=== PATIENT | male | born 1955 | race Two or more races ===

== ENCOUNTER 2019-07-30 13:45 | Inpatient (IN) | payer MEDICAID, SELFPAY ==
[2019-07-30] VITALS (8 sets, daily range): BP systolic 111–151; BP diastolic 57–84; PULSE 60–89; RESP 16–22; TEMP 36.9–37.3; O2SAT 93–95; BMI 27.4; BMI 26.3
--- NOTE | 2019-07-30 14:01 | CT_ITS ---
PROCEDURE: CT CHEST WO CON Patient Age:64Y CLINICAL INDICATION: pain epigastric pain with episode of vomiting this morning. Nonsmoker COMPARISON: CT ABDOMEN PELVIS WO CON from 07/30/2019 TECHNIQUE: No IV contrast utilized. Helical axial images obtained with axial sagittal and coronal reformats. All CT scans at the facility use one or more dose reduction, viz: automated exposure control, ma/kV adjustment per patient size (including targeted exams where dose is matched to indication, i.e. head), or iterative reconstruction technique. . FINDINGS: HEART: Heart enlarged; mainly ventricular enlargement.. No pericardial effusion. Upper abdomen. Is describing subsequent CT abdomen report MEDIASTINAL AND HILAR STRUCTURES: No mediastinal or hilar mass evident. No dominant adenopathy. Esophagus: Fluid within the esophagus noted. Could reflect GE reflux. The preliminary V RC report raised question a small hiatal hernia but I am not convinced of such. PULMONARY ARTERIES: No discrete findings; slightly generous pulmonary arteries at hilar regions on right of questionably could reflect mild pulmonary hypertension. AORTA: No significant aneurysm but there is mildly dilated ascending aorta which measures 4.5 cm.. . A ectatic dilated right innominate artery LUNGS:Dependent atelectasis at the lung bases bilaterally. There is also some scarring at the posterior sulcus of particular in the left posterior sulcus. . Trace minimal atelectasis at lingula accounts for appearance here as well The mild vascular engorgement of pulmonary veins could reflect some mild vascular congestion but no overt CHF or pulmonary edema otherwise but PLEURAL SPACES: No significant effusion. No evidence of pneumothorax. BONY STRUCTURES: No acute bony abnormalities apparent.. No osseous lesions. Anterior marginal osteophytes throughout mid and lower T-spine. Mild degenerative changes T-spine. Degenerative changes T-spine LYMPH NODES: No significant enlarged lymph nodes evident. Upper abdomen. Fatty changes the liver. Pancreas partially imaged on this study; hazy appearance here again noted reflecting pancreatitis of best seen and discussed on CT abdomen study IMPRESSION: Cardiomegaly. Mainly left ventricular enlargement . Minor atelectatic changes posterior lung bases bilaterally; with no focal consolidation or pneumonia or Incidental note minimal fluid throughout esophagus-could reflect GE reflux (V RC suggested probable small hiatal hernia however I not convinced of such on these images) Ectatic mildly dilated ascending aorta (4.2 cm diameter) and with dilated proximal aortic arch (4 cm diameter.) These features can be followed ectatic dilated Dictated by: Ra Briceno MD 07/31/2019 09:54 Electronically signed by Ra Briceno MD in [place] 07/31/2019 09:54
--- NOTE | 2019-07-30 14:01 | CT_ITS ---
Procedure: CT ABDOMEN PELVIS WO CON Patient Age:64Y CLINICAL INDICATION: pain epigastric pain with 1 episode of vomiting this morning. Patient has had surgery at left side involving bowel COMPARISON: No exams were available for comparison TECHNIQUE: No oral or IV contrast utilized Helical axial l images obtained with axial sagittal and coronal reformats. All CT scans at the facility use one or more dose reduction,, viz: Automated exposure control, ma/kV adjustment per patient size (including targeted exams where dose is matched to indication, i.e. head), or iterative reconstruction technique. FINDINGS: Lower thorax: No acute finding borderline cardiomegaly V RC raised question of a small possible hiatal hernia this unimpressive there is minimal fluid esophagus which could reflect reflux ABDOMEN: Lack of oral and IV contrast decreases sensitivity Liver: Diffuse fatty changes of liver. Gallbladder: Nondistended. Suggestion of faint debris at the gallbladder towards fundus. Of reflecting small faint stones or sludge. Common duct normal diameter with no discrete stones appreciated along the course of common duct on 9. Pancreas: Mild peripancreatic fat stranding surround the pancreas, most evident near the tail the pancreas. Findings suggest early pancreatitis., particularly with addition of minimal fluid extending from the pancreas to Gerota fascia anterior to left kidney and the minimal fluid extending laterally beginning to track along the left gutter. Findings require correlation with amylase/lipase. Spleen: unremarkable WNL Adrenals: unremarkable WNL sludge Kidneys/ureters: unremarkable no notable calculi nor obstruction kidneys normal size. Ureters unremarkable PELVIS: Reproductive: Mildly the enlarged prostate measuring 5 cm but Urinary bladder unremarkable . GI tract. -------- Fluid-filled stomach mildly distended. Slightly distended fluid-filled duodenal loop 3rd portion could reflect some mild ileus secondary to pancreatitis in this region normal, unremarkable Small bowel: Otherwise overall satisfactory. Perhaps slight increased fluid proximal small bowel with upper normal wall thickness proximal small bowel. Non-specific mid and distal small bowel unremarkable. Appendix identified and normal. No evidence of appendicitis.:Terminal ileum normal. Large bowel:. Scattered diverticula at descending colon, splenic flexure and sigmoid colon. No acute diverticulitis. A normal amount of stool at rectosigmoid and right colon.. Upper normal wall thickness near splenic flexure-most likely reflects lack distension.. Peritoneum: Again note the minimal tracking along along the fascia anterior to the left kidney extending towards the left gutter left paracolic gutter. This fluid appears to extend up to the tail the pancreas and again suspect for pancreatitis. Otherwise no free air. And no free fluid at pelvis Small fat containing right inguinal hernia noted. Contains no bowel loops . Lymph nodes: No significant enlarged lymph nodes apparent. Vasculature: Developing aneurysm dilatation infrarenal abdominal aorta of which measures up to 3.9 cm AP 3.4 cm transverse x 5.7 cm length. Warrants follow-up with ultrasound 6 months-period.. Only mild dilatation of common iliac vessels no retroperitoneal hemorrhage evident. Bones: No acute fracture or findings Degenerative changes spine. No lesions or acute findings of note IMPRESSION: 1.Findings of developing pancreatitis.-and require correlation with amylase and lipase. . There is slight hazy appearance about the pancreas with minimal fluid tracking along left perirenal fascia towards left gutter No pseudocyst formation.. Common
[2019-07-30 14:23] LABS: Anion Gap 12.5 mEq/L (5-15); Blood Urea Nitrogen 19 mg/dl (9-20); Calcium 10.2 mg/dl (8.4-10.2); Carbon Dioxide 29 mmol/L (22.0-30.0); Chloride 102 mmol/L (98-107); Creatinine Clearance Estimated 81 mL/min (50-200); Estimated Glomerular Filt Rate 114 ml/min (>60); GFR (African American) 138 ML/MIN (>60); Glucose 168 mg/dl (74-100); Potassium 3.5 mmoL/L (3.5-5.1); Sodium 140 mmol/L (136-145)
[2019-07-30 14:27] LABS: Basophils % 0.2 % (0.1-2.0); Eosinophils % 0.2 % (0.1-12.0); Hematocrit 50.9 % (42.0-52.0); Hemoglobin 17.4 g/dL (14.1-18.0); Lymphocytes # 0.4 K/mm3 (0.7-4.5); Lymphocytes % 3.7 % (10-50); Mean Corpuscular HGB Conc 34.1 g/dL (31.8-35.4); Mean Platelet Volume 8.3 fl (7.4-10.4); Monocytes # 0.8 K/mm3 (0.1-1.0); Monocytes % 6.9 % (1.7-9.3); Neutrophils # 10.8 K/mm3 (1.8-7.8); Platelet Count 165 K/mm3 (142-424); Red Blood Count 5.59 M/mm3 (4.60-6.20); Red Cell Distribution Width 13.4 % (11.5-17.5); White Blood Count 12.1 K/mm3 (4.8-10.8)
[2019-07-30 14:29] LABS: MANUAL DIFFERENTIAL MANUAL DIFFERENTIAL (MANUAL DIFF)
[2019-07-30 14:36] LABS: Troponin I < 0.01 ng/ml (0.00-0.034)
[2019-07-30 14:42] LABS: Lymphocytes % 3 % (10-50); Monocytes % 3 % (2-9); Neutrophils % 85 % (42-76); Platelet Estimate Normal; RBC Morphology Normal; Total Cells Counted 100
--- NOTE | 2019-07-30 15:29 | PC.NURSE ---
SPOKE WITH MICHAEL CONCERNING ABD CT RESULTS THAT THEY STATE ARE SUGGESTED OF ACUTE PANCREATITIS.
[2019-07-30 15:40] LABS: Amylase 621 U/L (30-110)
--- NOTE | 2019-07-30 16:01 | HMH.EDABDPAI ---
ED Disposition Clinical Impression: Abdominal pain, Acute pancreatitis, Hiatal hernia Disposition: Admitted as Observation Condition on Discharge: Good Instructions: DI for Acute Abdomen Referrals: Provider,Referral, [Primary Care Provider] - - Critical Care Critical Care Time: No Attestation: On 07/30/19, the high probability of a clinically significant, sudden or life threatening deterioration of the following system(s) required my full and direct attention, intervention and personal management. The time I documented below is in addition to time spent performing reported procedures but includes the following listed in this critical care notation. Medical Decision Making - Medical Records Medical records reviewed: Yes: I reviewed the patient's medical records. - [place] Inquiry Pt receiving controlled substance: No Vital Signs: 07/30/19 13:46 Temperature 98.4 F Temperature Source Oral Pulse Rate [Radial] 78 Respiratory Rate 18 Blood Pressure [Right Arm] 129/83 Blood Pressure Mean [Right Arm] 98 Blood Pressure Source [Right Arm] Automatic Cuff Blood Pressure Position [Right Arm] Sitting 02 Sat by Pulse Oximetry 95 Oxygen Delivery Method Room Air - Lab Data Lab results reviewed: Yes: I reviewed the patient's lab results. Lab Results 07/30/19 13:55: WBC 12.1 H, RBC 5.59, Hgb 17.4, Hct 50.9, MCV 91.0, MCH 31.0, MCHC 34.1, RDW 13.4, Plt Count 165, MPV 8.3, Neut % (Auto) 89.0 H, Lymph % (Auto) 3.7 L, [place] % (Auto) 6.9, Eos % (Auto) 0.2, Baso % (Auto) 0.2, Neut # (Auto) 10.8 H, Lymph # (Auto) 0.4 L, [place] # (Auto) 0.8, Eos # (Auto) 0.0, Baso # (Auto) 0.0, Total Counted 100, Neutrophils % (Manual) 85 H, Band Neutrophils % 4.0, Lymphocytes % (Manual) 3 L, Monocytes % (Manual) 3, Metamyelocytes % 5.0 H, Platelet Estimate Normal, RBC Morphology Normal 07/30/19 13:55: Sodium 140, Potassium 3.5, Chloride 102, Carbon Dioxide 29, Anion Gap 12.5, BUN 19, Creatinine 0.70, Estimated Creat Clear 81, Estimated GFR 114, Est GFR ( Amer) 138, Glucose 168 H, Calcium 10.2, Troponin I < 0.01 07/30/19 13:55: Amylase 621 H* Result diagrams: 07/30/19 13:55 07/30/19 13:55 Orders (Tests/Meds): ED MEDICATIONS Discontinued Medications Generic Name Dose Route Start Last Admin Trade Name Freq PRN Reason Stop Dose Admin Belladonna Alkaloids 60 ml 07/30/19 14:51 07/30/19 14:52 Gi Cocktail 60ml Udc PO 07/30/19 14:52 60 ml ONCE ONE Administration ORDERS Category Date Time Status CT abdomen pelvis wo con Stat Cat Scan 07/30/19 14:[address] chest wo con Stat Cat Scan 07/30/19 14:01 Taken Amylase Stat Lab 07/30/19 13:55 Results Lipase Stat Lab 07/30/19 13:55 Results Troponin I Q3H Lab 07/30/19 15:09 Ordered Troponin I Q3H Lab 07/30/19 20:15 Ordered - CT Data CT Scan: Abdomen, Pelvis Time Received: 16:00 Preliminary Findings: Abnormal (She hasFat stranding around the tail the pancreas and also inflamed tail significant for mild pancreatitis or new onset pancreatitis.), Normal Heart Size - ECG Data Tracing #1 I reviewed this ECG and interpreted as documented below: Normal Sinus Rhythm: Yes Medical Decision Narrative: Spoke to Dr. Goode about admitting this patient he agreed to start the patient on antibiotics IV fluids IV pain medicines and IV antiemetics. Abdominal Pain HPI - General Chief Complaint: Abdominal Pain Stated Complaint: stomach pain, vomiting Time Seen by Provider: 07/30/19 16:01 Mode of Arrival: Wheelchair Source of Information: Patient Limitations: No Limitations Description of Symptoms (Recalled from ER Triage Doc. by RN): complaint of epigastric pain with vomiting x 1. - History of Present Illness HPI narrative: 64-year-old male presents to the ED with an acute onset of epigastric and left upper quadrant pain x9 hours. Patient describes this pain as a sharp pressure-like sensation that starts in the left upper quadrant that radiates over to th
[2019-07-30 16:06] LABS: Lipase 7723 U/L (23-300)
--- NOTE | 2019-07-30 16:22 | PC.NURSE ---
CALLED CHARGE NURSE FOR BED ASSIGNMENT. PATIENT WILL BE ADMITTED TO ROOM 212. ER STAFF NOTIFIED
--- NOTE | 2019-07-30 17:04 | PC.NURSE ---
Pt arrived to floor via .
[2019-07-30 17:38] LABS: Troponin I < 0.01 ng/ml (0.00-0.034)
--- NOTE | 2019-07-30 18:20 | PC.NURSE ---
Pt arrived to the unit around 1700. A&O X4. No complaints of pain/discomfort or SOA. Abdomen noted to be flat, soft, and slightly tender. NPO except ice chips at this time. 18 G peripheral IV in place to the LT forearm and infusing NS @ 125 ML/HR. Lungs CTA. VSS. Call light within reach. Will continue to monitor.
[2019-07-30 20:33] LABS: Troponin I < 0.01 ng/ml (0.00-0.034)
[2019-07-31] VITALS (9 sets, daily range): BP systolic 104–148; BP diastolic 58–83; PULSE 60–70; RESP 17–20; TEMP 36.8–37.1; O2SAT 94–96; BMI 26.6
--- NOTE | 2019-07-31 05:12 | PC.NURSE ---
Pt has had only mild c/o abdominal pain this shift but denies need for pain medication when asked. This RN educated pt on making sure pain was under control and to ring out if pain was >5/10. Pt verbalized understanding. No c/o N/V/D. Pt is independent w/ care and states he has had a BM this shift and voided twice w/o issues. Family has remained bedside during the night. TEDS in place. Pt has remained NPO except for ice chips (1 cup). VSS.
[2019-07-31 05:43] LABS: Basophils % 0.3 % (0.1-2.0); Eosinophils % 0.3 % (0.1-12.0); Hematocrit 44.3 % (42.0-52.0); Lymphocytes # 1.6 K/mm3 (0.7-4.5); Lymphocytes % 16.5 % (10-50); Mean Corpuscular HGB Conc 33.1 g/dL (31.8-35.4); Mean Corpuscular Hemoglobin 30.3 pg (27.0-31.2); Mean Corpuscular Volume 91.3 fl (80-94); Mean Platelet Volume 8.2 fl (7.4-10.4); Monocytes # 0.9 K/mm3 (0.1-1.0); Monocytes % 9.3 % (1.7-9.3); Neutrophils # 7.3 K/mm3 (1.8-7.8); Neutrophils % 73.6 % (37.0-80.0); Platelet Count 167 K/mm3 (142-424); Red Blood Count 4.84 M/mm3 (4.60-6.20); Red Cell Distribution Width 13.5 % (11.5-17.5); White Blood Count 9.9 K/mm3 (4.8-10.8)
[2019-07-31 05:48] LABS: Hemoglobin 14.7 g/dL (14.1-18.0)
[2019-07-31 05:55] LABS: Alanine Aminotransferase 126 U/L (12-78); Albumin Level 3.7 g/dl (3.5-5.0); Albumin/Globulin Ratio 1.2 (1.1-1.8); Alkaline Phosphatase 86 U/L (38-126); Amylase 348 U/L (30-110); Anion Gap 7.5 mEq/L (5-15); Aspartate Amino Transferase 76 U/L (17-59); Bilirubin,Total 1.6 mg/dl (0.2-1.3); Blood Urea Nitrogen 18 mg/dl (9-20); Carbon Dioxide 27 mmol/L (22.0-30.0); Chloride 105 mmol/L (98-107); Creatinine Clearance Estimated 79 mL/min (50-200); Estimated Glomerular Filt Rate 114 ml/min (>60); GFR (African American) 138 ML/MIN (>60); Potassium 3.5 mmoL/L (3.5-5.1); Sodium 136 mmol/L (136-145); Total Protein,Serum 6.7 g/dl (6.3-8.2)
[2019-07-31 06:05] LABS: Glucose 111 mg/dl (74-100); Lipase 2538 U/L (23-300)
[2019-07-31 06:06] LABS: Calcium 8.8 mg/dl (8.4-10.2)
--- NOTE | 2019-07-31 07:36 | HMH.PHAVTE ---
[facility] VTE Monitoring - Patient Demographics Admission date: 07/30/19 Report Date: 07/31/19 Time: 07:36 Allergies/Adverse Reactions: Patient Allergies No Known Allergies Allergy (Verified 07/30/19 17:26) Height: 1.65 m Weight: 72.631 kg Patient Problems: Current Active Problems Abdominal pain (Acute) Acute pancreatitis (Acute) Hiatal hernia (Acute) - VTE Risk Labs: VTE Related Lab Results Hgb 14.7 g/dL (14.1-18.0) D 07/31/19 05:32 Hct 44.3 % (42.0-52.0) 07/31/19 05:32 Plt Count 167 K/mm3 (142-424) 07/31/19 05:32 BUN 18 mg/dl (9-20) 07/31/19 05:32 Creatinine 0.70 mg/dl (0.66-1.25) 07/31/19 05:32 Estimated Creat Clear 79 mL/min (50-200) 07/31/19 05:32 Was VTE Risk Assessment Performed: Yes VTE Score: 1 VTE Risk Level: Very Low Risk Clinical Trial Participant: No - Prophylaxis VTE Prophylaxis Ordered?: Yes Types of VTE Prophylaxis: TEDS Knee High Location of Applied Device: Bilateral Lower Extremeties
--- NOTE | 2019-07-31 08:37 | HMH.HP ---
*Admission Date: 07/30/19 *Chief complaint: Abdominal pain *History of present illness: Mr. Holloway is a 64-year-old male who is relatively healthy and takes no medications. He presented to the emergency room yesterday p.m. after experiencing increasing upper abdominal pain since 3AM. He states he did experience some nausea and he did vomit a few times. He denies diarrhea. He denies fever. He denies any upper respiratory symptoms. Describes belching and some bloating. He states he had a similar episode about 3 weeks ago with severe upper quadrant pain associated with nausea and vomiting. He states it did resolve until yesterday. He cannot correlate his pain with eating any type of foods. He states he eats Ethiopian food. He does not drink alcohol and he does not use tobacco. With evaluation in the emergency room his white blood cell count was found to be 12,100. CT of the abdomen revealed early pancreatitis. Amylase and lipase were elevated. Patient was admitted and started on IV fluids and antibiotics. This morning patient is feeling better. He has had some abdominal discomfort but nothing severe. [facility] History Medical History: Denies:: Cancer, Diabetes Mellitus Type 1, Diabetes Mellitus Type 2, MRSA *Have you ever received a pneumonia vaccine?: No *Have you received a flu vaccine this season?: Yes Laterality Cases: Bilateral: Other Other Surgeries: Yes: Hernia Repair (Inguinal) Amputation: No Fractures: Yes (LT Ankle) - *Social History Educational Level: Attended Grade School Smoking Status: Never smoker Alcohol Intake: never Substance Use Type: denies use *Occupational Status:: employed Housing: house Household Members: spouse *Travel in the last 8 weeks: None Family Hx:: Diabetes, no Cancer, no Coronary Artery Disease, no Stroke Review of Systems - Constitutional Denies chills, Denies fever(s), Denies headache(s), Denies weakness - Eyes Denies change in vision - ENT Denies dizziness, Denies ear pain, Denies sore throat - *Cardiovascular Denies chest pain, Denies shortness of breath, Denies generalized swelling, Denies leg swelling (Is doing really well has not had severe pain healthy but he did experience ) - *Respiratory Denies chest congestion, Denies cough, Denies shortness of breath - *Gastrointestinal Reports abdominal pain, Reports belching (.), Reports bloating, Reports nausea, Reports vomiting, Denies change in bowel habits, Denies coffee ground vomit, Denies constipation, Denies heartburn, Denies heartburn, Denies vomiting blood, Denies loose stools, Denies black, tarry stools - *Genitourinary Denies difficulty urinating - *Musculoskeletal Reports joint pain, Denies abnormal walking Comments: Chronic right foot and right ankle discomfort from previous surgery - *Neurologic Denies abnormal walking, Denies abnormal hearing, Denies abnormal movements, Denies behavioral changes, Denies dizziness Meds Home Medications Medication Instructions Recorded Confirmed Type No Known Home Medications 07/30/19 07/30/19 History Allergies Allergy/AdvReac Type Severity Reaction Status Date / Time No Known Allergies Allergy Verified 07/30/19 17:26 Exam Vital signs and Labs for Last 24 Hours: Temp Pulse Resp BP Pulse Ox 98.3 F 66 17 127/71 95 07/31/19 07:38 07/31/19 07:38 07/31/19 07:38 07/31/19 07:38 07/31/19 07:38 Laboratory Results - last 24 hr 07/30/19 13:55: WBC 12.1 H, RBC 5.59, Hgb 17.4, Hct 50.9, MCV 91.0, MCH 31.0, MCHC 34.1, RDW 13.4, Plt Count 165, MPV 8.3, Neut % (Auto) 89.0 H, Lymph % (Auto) 3.7 L, [place] % (Auto) 6.9, Eos % (Auto) 0.2, Baso % (Auto) 0.2, Neut # (Auto) 10.8 H, Lymph # (Auto) 0.4 L, [place] # (Auto) 0.8, Eos # (Auto) 0.0, Baso # (Auto) 0.0, Total Counted 100, Neutrophils % (Manual) 85 H, Band Neutrophils % 4.0, Lymphocytes % (Manual) 3 L, Monocytes % (Manual) 3, Metamyelocytes % 5.0 H, Platelet Estimate Normal, RBC Morphology Normal 07/30/19 13:
[2019-07-31 09:02] LABS: Chol/HDL Ratio 3.3 (1-3.5); Cholesterol 129 mg/dl (140-200); HDL Cholesterol 39 mg/dl (40-60); Triglycerides 51 mg/dl (30-150); VLDL Cholesterol 10 mg/dL (0-40)
[2019-07-31 09:13] LABS: Direct LDL Cholesterol 84.74 mg/dL (100-129)
[2019-07-31 09:15] LABS: Hemoglobin A1C 5.3 % (4.0-6.0)
--- NOTE | 2019-07-31 09:21 | US_ITS ---
PROCEDURE: US GALLBLADDER CLINICAL INDICATION: r/o stones Abdominal pain with vomiting and pancreatitis the COMPARISON: CT ABDOMEN PELVIS WO CON from 07/30/2019 FINDINGS: Pancreas: Poorly demonstrated due to overlying bowel gas. Liver: Unremarkable. There is appropriate direction of blood flow within a non dilated portal vein. Right kidney: Unremarkable appearing. No hydronephrosis. Gallbladder: Gallbladder is distended with stones and sludge. The gallbladder wall is slightly thickened at 4 mm with minimal amount of pericholecystic fluid. Incidental note is made dilated abdominal aorta measuring up to 3 cm. IMPRESSION: 1. Distended gallbladder with cholelithiasis, sludge, thickened wall and minimal amount of pericholecystic fluid 2. Abdominal aortic aneurysm. This is better demonstrated on the CT scan Dictated by: Carter Dobbins MD 07/31/2019 12:15 Electronically signed by Carter Dobbins MD in [place] 07/31/2019 12:15
--- NOTE | 2019-07-31 18:15 | PC.NURSE ---
Pt is A&O X4, pleasant, and cooperative. Pt ambulates independently throughout the room and to the bathroom. No complaints of pain or SOA this shift. Pt c/o being hungry and requested food around noon today. Low fat diet order was received per Dr. Goode and pt has tolerated this diet well thus far. 18 G peripheral IV in place to the LT forearm is infusing NS @ 125 ML/HR. VSS. Call light within reach. Will continue to monitor.
--- NOTE | 2019-07-31 19:10 | PC.NURSE ---
report given to jaguar
[2019-08-01] VITALS (10 sets, daily range): BP systolic 107–165; BP diastolic 51–83; PULSE 54–70; RESP 16–18; TEMP 36.6–37; O2SAT 95–98; BMI 27.1
[2019-08-01 06:38] LABS: Alanine Aminotransferase 87 U/L (12-78); Albumin Level 3.6 g/dl (3.5-5.0); Alkaline Phosphatase 80 U/L (38-126); Amylase 100 U/L (30-110); Anion Gap 6.9 mEq/L (5-15); Aspartate Amino Transferase 50 U/L (17-59); Bilirubin,Indirect 0.7 mg/dL (0.0-0.9); Bilirubin,Total 0.7 mg/dl (0.2-1.3); Bilirubin,Unconjugated 0.8 mg/dL (0.0-1.1); Blood Urea Nitrogen 13 mg/dl (9-20); Calcium 9.2 mg/dl (8.4-10.2); Carbon Dioxide 26 mmol/L (22.0-30.0); Chloride 106 mmol/L (98-107); Creatinine Clearance Estimated 80 mL/min (50-200); Estimated Glomerular Filt Rate 114 ml/min (>60); GFR (African American) 138 ML/MIN (>60); Glucose 98 mg/dl (74-100); Lipase 785 U/L (23-300); Potassium 3.9 mmoL/L (3.5-5.1); Sodium 135 mmol/L (136-145); Total Protein,Serum 6.7 g/dl (6.3-8.2)
--- NOTE | 2019-08-01 08:03 | HMH.ACPN2 ---
Internal Medicine - PN: Subj *Date: 08/01/19 *Time: 08:03 Interval history: Patient is doing well this a.m. Tolerated low-fat diet. He is already eaten breakfast and did well. He has had no further nausea or abdominal pain. He did have diarrhea this morning. He is voiding QS. He is up and about in the room without difficulty. Chemistries show a normal renal function. Bilirubin has decreased to 0.7 and AST is 50 and ALT has decreased to 87. Cholesterol profile reveals triglycerides of 51. Total cholesterol is 129 with a LDL of 84.74. Amylase is normal at 100 and lipase has decreased to 785. CBC is normal this morning. Patient had a gallbladder ultrasound yesterday which showed distended gallbladder with cholelithiasis, sludge, thickened wall and minimal amount of . Pericolecystic fluid.It also revealed Incidentally an abdominal aortic aneurysm During up to 3 cm Exam Vital signs and Labs for Last 24 Hours: Temp Pulse Resp BP Pulse Ox 98.1 F 62 18 159/83 H 98 08/01/19 07:25 08/01/19 07:25 08/01/19 07:25 08/01/19 07:25 08/01/19 07:25 Laboratory Results - last 24 hr 07/31/19 05:32: Hemoglobin A1c 5.3 07/31/19 05:32: Triglycerides 51, Cholesterol 129 L, LDL Cholesterol Direct 84.74 L, VLDL Cholesterol 10, HDL Cholesterol 39 L, Cholesterol/HDL Ratio 3.3 08/01/19 05:48: Sodium 135 L, Potassium 3.9, Chloride 106, Carbon Dioxide 26, Anion Gap 6.9, BUN 13 D, Creatinine 0.70, Estimated Creat Clear 80, Estimated GFR 114, Est GFR ( Amer) 138, Glucose 98, Calcium 9.2, Amylase 100, Lipase 785 H 08/01/19 05:48: Total Bilirubin 0.7, Direct Bilirubin 0.0, Conjugated Bilirubin 0.0, Indirect Bilirubin 0.7, Unconjugated Bilirubin 0.8, AST 50 D, ALT 87 H D, Alkaline Phosphatase 80, Total Protein 6.7, Albumin 3.6 I & O for Last 24 hours: Intake & Output 07/29/19 07/30/19 07/31/19 08/01/19 11:59 11:59 11:59 11:59 Intake Total 1554 / 1554 3190 / 3190 Output Total Balance 1553 / 1553 3190 / 3190 Weight 160 lb 2 oz 162 lb 8 oz Radiology Reports for the Last 24 Hours: 07/31/2019 right upper quadrant ultrasound 1. Distended gallbladder with cholelithiasis, sludge, thickened wall and minimal amount of pericholecystic fluid - Constitutional no acute distress Comments: Sitting up in the chair. Appears comfortable. Daughter is visiting. - *Routine Respiratory Exam Present: CTA bilaterally (Anteriorly and posteriorly) - *Routine Cardiovascular Exam Present: RRR - *Routine Abdominal Exam Present: soft, normoactive bowel sounds. Absent: tenderness, distended - *Routine Extremities Exam Absent: edema, calf tenderness - *Routine Neurological Exam Present: alert, oriented X3 Assessment and Plan (1) Abnormal results of liver function studies Current visit: Yes Status: Acute Category: Medical Code(s): R94.5 - Abnormal results of liver function studies (2) Abdominal pain Current visit: Yes Status: Acute Category: Medical Code(s): R10.9 - Unspecified abdominal pain (3) Acute pancreatitis Current visit: Yes Status: Acute Category: Medical Code(s): K85.90 - Acute pancreatitis without necrosis or infection, unspecified (4) Cholelithiasis and cholecystitis without obstruction Current visit: Yes Status: Acute Category: Medical Code(s): K80.10 - Calculus of gallbladder with chronic cholecystitis without obstruction (5) Abdominal aortic aneurysm Current visit: Yes Status: Acute Category: Medical Code(s): I71.4 - Abdominal aortic aneurysm, without rupture - Assessment and plan all Dx Assessment and Plan for all problems:: Consult surgeon catheterization laboratory technician. Saline lock IV.
--- NOTE | 2019-08-01 12:49 | HMH.GSCON ---
*Admission Date: 07/30/19 *Reason for consult:: Distended Gallbladder. . . *History of present illness: Patient is a 64-year-old male who presented to the emergency department a couple of days ago with midepigastric pain and vomiting. He was evaluated in the emergency department at that time and found to have evidence of chemical and radiographic pancreatitis with elevation of amylase and lipase. CT scan of the abdomen pelvis revealed some stranding and inflammation around the tail of the pancreas without evidence of complicated pancreatitis with findings of sludge versus faint stones in the gallbladder. He was admitted for inpatient management. Yesterday morning he had a gallbladder ultrasound performed which revealed distended gallbladder with gallstones without common duct dilatation with some thickening and small amount of pericholecystic fluid. Patient was started on a low-fat diet which he has tolerated without difficult. Surgical consultation was ordered this morning. He states that his pain has resolved. Review of Systems - Review of Systems Review of systems:: pertinent systems reviewed and negative unless documented below - *Neurologic Denies abnormal walking, Denies abnormal hearing, Denies abnormal movements, Denies behavioral changes, Denies dizziness, Denies headache(s), Denies dizziness, Denies weakness [facility] History Medical History: Denies:: Cancer, Diabetes Mellitus Type 1, Diabetes Mellitus Type 2, MRSA *Have you ever received a pneumonia vaccine?: No *Have you received a flu vaccine this season?: Yes Laterality Cases: Bilateral: Other Other Surgeries: Yes: Hernia Repair (Inguinal) Amputation: No Fractures: Yes (LT Ankle) - *Social History Educational Level: Attended Grade School Smoking Status: Never smoker Alcohol Intake: never Substance Use Type: denies use *Occupational Status:: employed Housing: house Household Members: spouse *Travel in the last 8 weeks: None Family Hx:: Diabetes, no Cancer, no Coronary Artery Disease, no Stroke Meds Home Medications Medication Instructions Recorded Confirmed Type No Known Home Medications 07/30/19 07/30/19 History Allergies Allergy/AdvReac Type Severity Reaction Status Date / Time No Known Allergies Allergy Verified 07/30/19 17:26 Exam Vital signs and Labs for Last 24 Hours: Temp Pulse Resp BP Pulse Ox 98.1 F 60 18 159/83 H 98 08/01/19 07:25 08/01/19 08:00 08/01/19 07:25 08/01/19 07:25 08/01/19 07:25 Laboratory Results - last 24 hr 08/01/19 05:48: Sodium 135 L, Potassium 3.9, Chloride 106, Carbon Dioxide 26, Anion Gap 6.9, BUN 13 D, Creatinine 0.70, Estimated Creat Clear 80, Estimated GFR 114, Est GFR ( Amer) 138, Glucose 98, Calcium 9.2, Amylase 100, Lipase 785 H 08/01/19 05:48: Total Bilirubin 0.7, Direct Bilirubin 0.0, Conjugated Bilirubin 0.0, Indirect Bilirubin 0.7, Unconjugated Bilirubin 0.8, AST 50 D, ALT 87 H D, Alkaline Phosphatase 80, Total Protein 6.7, Albumin 3.6 I & O for Last 24 hours: Intake & Output 07/30/19 07/31/19 08/01/19 08/02/19 11:59 11:59 11:59 11:59 Intake Total 1554 / 1554 3190 / 3190 Output Total Balance 1553 / 1553 3190 / 3190 Weight 160 lb 2 oz 162 lb 8 oz Narrative: On examination patient is in no acute distress. Abdomen is soft and nontender. Results - Labs 07/31/19 05:32 08/01/19 05:48 Laboratory Results - last 24 hr 08/01/19 05:48: Sodium 135 L, Potassium 3.9, Chloride 106, Carbon Dioxide 26, Anion Gap 6.9, BUN 13 D, Creatinine 0.70, Estimated Creat Clear 80, Estimated GFR 114, Est GFR ( Amer) 138, Glucose 98, Calcium 9.2, Amylase 100, Lipase 785 H 08/01/19 05:48: Total Bilirubin 0.7, Direct Bilirubin 0.0, Conjugated Bilirubin 0.0, Indirect Bilirubin 0.7, Unconjugated Bilirubin 0.8, AST 50 D, ALT 87 H D, Alkaline Phosphatase 80, Total Protein 6.7, Albumin 3.6 Assessment and Plan (1) Abnormal results of liver function studies Current v
--- NOTE | 2019-08-01 13:37 | CA_ITS ---
APPROVED REPORT EXAM: Comprehensive 2D, Doppler, and color-flow Echocardiogram Plier Worker: Collette Cuello RVT Ht: 5 ft 4 in Wt: 162lbs BSA: 1.79 BP: 159/83 mmHg Indications: CARDIOMEGALY,PRE-OP,PANCREATITIS,AAA,DILATED AORTIC ARCH ON CT SCAN 2D Dimensions LVOT 2.22 cm (M/F) 1.5-2.5 M-Mode Dimensions RVDd 3.17 cm (0.9-2.6) LVDd 5.62 cm (3.5-5.7) LVDs 3.93 cm (3.5-5.7) IVSd 1.20 cm (0.6-1.1) PWd 0.44 cm (0.6-1.1) EF (Teich) 56.70% FS 30.10% EDV (Teich) 154.90 mL ESV (Teich) 67.10 mL LV Diastology E/A Ratio 0.90 Mitral Valve MV A Velocity 88.00 (40-130 cm/s) Left Ventricle Left atrium is mildly enlarged, left ventricle is normal size, mild concentric left ventricular hypertrophy, visually estimated ejection fraction 50% with no regional wall motion abnormality. Grade 1 diastolic dysfunction seen without tissue Doppler evidence of raise left atrial pressure. Right Ventricle Right atrium and right ventricular normal size and contractility. Aortic Valve Aortic valve is thickened and calcified leaflet continue to display mobility, there is no aortic stenosis, there is mild aortic insufficiency. Mitral Valve Mitral valve is minimally thickened, there is mild mitral regurgitation. Tricuspid Valve Tricuspid valve is grossly normal, there is mild tricuspid regurgitation, tricuspid regurgitation jet velocity is inadequate for calculation of the right ventricular systolic pressure. Pulmonic Valve Pulmonic valve is poorly visualized. Great Vessels Aortic root is normal size. Pericardium No significant pericardial effusion noted. Conclusion 1. Mildly enlarged left atrium, normal left ventricular size, mild concentric left ventricular hypertrophy, visually estimated ejection fraction 50% with no regional wall motion abnormality, grade 1 diastolic dysfunction seen without tissue Doppler evidence of raise left atrial pressure. 2. Thickened and calcified aortic valve without aortic stenosis, there is mild aortic insufficiency. 3. Mild mitral and tricuspid regurgitation. 4. No significant pericardial effusion noted. Electronically signed by : Eduard Coker, 08/01/2019 18:22:57
--- NOTE | 2019-08-01 14:17 | ECG_ITS ---
APPROVED REPORT Exam: Resting ECG HR:59 bpm ECG Measurements Heart Rate 59 AXES TX 178 P 30 QRSd 94 QRS -7 QT 408 T 11 QTc 403 <Conclusion> Sinus bradycardia Minimal voltage criteria for LVH, may be normal variant Borderline ECG Electronically signed by : Ger Lutz, 08/02/2019 08:26:59
--- NOTE | 2019-08-01 15:07 | HMH.CNCARD ---
History of Present Illness Consult date: 08/01/19 Requesting physician: Junie Goode Consult reason: pre-op evaluation Chief complaint: Pre-op evaluation Additional Medical History:: 1. Gallstone induced pancreatitis, 07/2019 2. History of traumatic injury with bone fractures of the left ankle 16 years ago 3. Cardiome[address]aly on CT of the chest, 07/2019 4. 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 Infrarenal aortic aneurysm, 3.9 cm, CT of the abdomen, 07/2019 History of present illness: Mr. Holloway is a 64-year-old male who is relatively healthy and takes no medications. He presented to the emergency room yesterday p.m. after experiencing increasing upper abdominal pain since 3AM. He states he did experience some nausea and he did vomit a few times. He denies diarrhea. He denies fever. He denies any upper respiratory symptoms. Describes belching and some bloating. He states he had a similar episode about 3 weeks ago with severe upper quadrant pain associated with nausea and vomiting. He states it did resolve until yesterday. He cannot correlate his pain with eating any type of foods. He states he eats [place] food. He does not drink alcohol and he does not use tobacco. With evaluation in the emergency room his white blood cell count was found to be 12,100. CT of the abdomen revealed early pancreatitis. Amylase and lipase were elevated. Patient was admitted and started on IV fluids and antibiotics. This morning patient is feeling better. He has had some abdominal discomfort but nothing severe. The above per Amanda Aldana APRN for Dr. Goode. Cardiology consulted for preop evaluation due to cardiomegaly, aortic root enlargement and infrarenal aneurysm noted on CAT scans of the chest and abdomen. Patient has no history of these diagnoses. He denies any tobacco use. No history of hypertension hyperlipidemia or diabetes. [facility] History Medical History: Denies:: Cancer, Diabetes Mellitus Type 1, Diabetes Mellitus Type 2, MRSA *Have you ever received a pneumonia vaccine?: No *Have you received a flu vaccine this season?: Yes Laterality Cases: Bilateral: Other Other Surgeries: Yes: Hernia Repair (Inguinal) Amputation: No Fractures: Yes (LT Ankle) - *Social History Educational Level: Attended Grade School Smoking Status: Never smoker Alcohol Intake: never Substance Use Type: denies use *Occupational Status:: employed Housing: house Household Members: spouse *Travel in the last 8 weeks: None Family Hx:: Diabetes, no Cancer, no Coronary Artery Disease, no Stroke Meds Home Medications Medication Instructions Recorded Confirmed Type No Known Home Medications 07/30/19 07/30/19 History Allergies Allergy/AdvReac Type Severity Reaction Status Date / Time No Known Allergies Allergy Verified 07/30/19 17:26 Review of Systems - Review of Systems Review of systems:: pertinent systems reviewed and negative unless documented below - *Gastrointestinal Reports abdominal pain - *Genitourinary Denies blood in urine - *Musculoskeletal Reports back pain - *Neurologic Denies abnormal walking, Denies abnormal hearing, Denies abnormal movements, Denies behavioral changes, Denies dizziness, Denies headache(s), Denies dizziness, Denies weakness Exam Vital signs and Labs for Last 24 Hours: Temp Pulse Resp BP Pulse Ox 98.6 F 63 18 140/78 98 08/01/19 12:00 08/01/19 12:00 08/01/19 12:00 08/01/19 12:00 08/01/19 12:00 Laboratory Results - last 24 hr 08/01/19 05:48: Sodium 135 L, Potassium 3.9, Chloride 106, Carbon Dioxide 26, Anion Gap 6.9, BUN 13 D, Creatinine 0.70, Estimated Creat Clear 80, Estimated GFR 114, Est GFR ( Amer) 138, Glucose 98, Calcium 9.2, Amylase 100, Lipase 785 H 08/01/19 05:48: Total Bilirubin 0.7, Direct Bilirubin 0.0, Conjugated Bilirubin 0.0, Indirect Bilirubin 0.7, Unconjugated Bilirubin 0.8, AST 50 D, ALT 87 H D, Alkaline Phosphatase 80, Total Pro
--- NOTE | 2019-08-01 19:17 | PC.NURSE ---
report given to jaguar
[2019-08-02] VITALS (25 sets, daily range): BP systolic 100–156; BP diastolic 59–87; PULSE 50–84; RESP 13–18; TEMP 36.2–43; O2SAT 92–100; BMI 27.0
--- NOTE | 2019-08-02 | XR_ITS ---
PROCEDURE: XR CHOLANGIOGRAM OPERATIVE CLINICAL INDICATION: INTRAOPERATIVE CHOLEANGIOGRAM COMPARISON: US GALLBLADDER from 07/31/2019 FINDINGS: Fluoroscopy time: 0.2 minutes Contrast is injected into the cystic duct. Two images are submitted 1 which shows some apparent spasm of the ampulla as a 2nd image shows good filling of the ampulla. No ductal dilatation or residual common duct stones are evident.. There is good flow contrast into the duodenum IMPRESSION: Unremarkable intraoperative cholangiogram Dictated by: Carter Dobbins MD 08/02/2019 16:49 Electronically signed by Carter Dobbins MD in [place] 08/02/2019 16:49
--- NOTE | 2019-08-02 08:48 | HMH.ACPN2 ---
Internal Medicine - PN: Subj *Date: 08/02/19 *Time: 08:48 Interval history: Patient states he is feeling well this morning. He sitting up in a chair and dressed. He was able to eat yesterday but is n.p.o. this morning for cholecystectomy. He denies any abdominal pain and states he has had a couple episodes of diarrhea. He denies any vomiting. Exam Vital signs and Labs for Last 24 Hours: Temp Pulse Resp BP Pulse Ox 98.0 F 54 L 16 156/79 H 96 08/02/19 08:00 08/02/19 08:00 08/02/19 08:00 08/02/19 08:00 08/02/19 08:00 I & O for Last 24 hours: Intake & Output 07/30/19 07/31/19 08/01/19 08/02/19 11:59 11:59 11:59 11:59 Intake Total 1554 / 1554 3190 / 3190 580 / 580 Output Total Balance 1553 / 1553 3190 / 3190 580 / 580 Weight 160 lb 2 oz 162 lb 8 oz 162 lb 4 oz - Constitutional no acute distress - *Routine Respiratory Exam Present: CTA bilaterally - *Routine Cardiovascular Exam Present: RRR - *Routine Abdominal Exam Present: soft, normoactive bowel sounds. Absent: tenderness - *Routine Extremities Exam Absent: cyanosis, clubbing, edema - *Routine Skin Exam Present: warm. Absent: rash - *Routine Neurological Exam Present: alert, oriented X3 Assessment and Plan (1) Abnormal results of liver function studies Current visit: Yes Status: Acute Category: Medical Code(s): R94.5 - Abnormal results of liver function studies (2) Abdominal pain Current visit: Yes Status: Acute Category: Medical Code(s): R10.9 - Unspecified abdominal pain (3) Acute pancreatitis Current visit: Yes Status: Acute Category: Medical Code(s): K85.90 - Acute pancreatitis without necrosis or infection, unspecified (4) Cholelithiasis and cholecystitis without obstruction Current visit: Yes Status: Acute Category: Medical Code(s): K80.10 - Calculus of gallbladder with chronic cholecystitis without obstruction (5) Abdominal aortic aneurysm Current visit: Yes Status: Acute Category: Medical Code(s): I71.4 - Abdominal aortic aneurysm, without rupture (6) Cardiomegaly Current visit: Yes Status: Acute Category: Medical Code(s): I51.7 - Cardiomegaly (7) Aortic root enlargement Current visit: Yes Status: Acute Category: Medical Code(s): I77.89 - Other specified disorders of arteries and arterioles - Assessment and plan all Dx Assessment and Plan for all problems:: Patient is n.p.o. for yaw flores today.
--- NOTE | 2019-08-02 09:33 | HMH.PNCARD ---
Subjective Date: 08/02/19 Time: 09:15 Principal diagnosis: Abdominal discomfort Interval history: This is a 64-year-old white gentleman who presented to the emergency department because of abdominal pain. The patient did experience nausea associated with abdominal pain and did also have a few episodes of vomiting. The patient did also have some belching and bloating associated with the abdominal pain. This morning he denies any chest pain or pressure. He is sitting up in the chair this morning upon arrival to his room. He denies any shortness of breath or edema. He denies any fever, chills, nausea, vomiting, PND or orthopnea. He does state that he did have a few episodes of diarrhea. The patient was diagnosed with pancreatitis and is scheduled to undergo cholecystectomy this morning. He states that his abdominal pain has improved and he is feeling much better since being in the hospital. Exam Vital signs and Labs for Last 24 Hours: Temp Pulse Resp BP Pulse Ox 98.0 F 54 L 16 156/79 H 96 08/02/19 08:00 08/02/19 08:00 08/02/19 08:00 08/02/19 08:00 08/02/19 08:00 I & O for Last 24 hours: Intake & Output 07/30/19 07/31/19 08/01/19 08/02/19 23:59 23:59 23:59 23:59 Intake Total 75 / 175 2769 / 2769 2380 / 2380 100 / 100 Output Total 1 / 1 Balance 75 / 174 2768 / 2768 2380 / 2380 100 / 100 Weight 158 lb 5 oz 160 lb 2 oz 162 lb 8 oz 162 lb 4 oz Narrative: This telemetry strip shows sinus bradycardia with a rate of 56. His echocardiogram showed an ejection fraction of 50% with diastolic dysfunction and mild aortic insufficiency and mild mitral regurgitation. - Constitutional no acute distress, average body habitus - *Routine HEENT Exam Head: Present: normocephalic, atraumatic Eye: Present: EOMI, PERRL ENT: Present: mucous membranes moist - *Routine Neck Exam Present: supple, full ROM, normal carotid upstroke. Absent: JVD, carotid bruit, lymphadenopathy - *Routine Respiratory Exam Present: CTA bilaterally - *Routine Cardiovascular Exam Present: RRR, Normal S1, Normal S2. Absent: murmur - *Routine Abdominal Exam Present: soft, normoactive bowel sounds. Absent: tenderness, distended - *Routine Extremities Exam Present: full ROM, pulses intact, normal capillary refill. Absent: cyanosis, clubbing, edema - *Routine Skin Exam Present: intact, warm. Absent: erythema, rash - *Routine Neurological Exam Present: alert, oriented X3, CN II-XII intact. Absent: sensory deficit, motor deficit Progress Note: A&P (1) Abdominal aortic aneurysm Status: Acute Current Visit: Yes (2) Abnormal results of liver function studies Status: Acute Current Visit: Yes (3) Abdominal pain Status: Acute Current Visit: Yes (4) Acute pancreatitis Status: Acute Current Visit: Yes (5) Cholelithiasis and cholecystitis without obstruction Status: Acute Current Visit: Yes (6) Cardiomegaly Status: Acute Current Visit: Yes (7) Aortic root enlargement Status: Acute Current Visit: Yes Assessment and Plan for All Diagnoses:: Plan: 1. Patient is acceptable risk from a cardiac standpoint to proceed with cholecystectomy today. He will need to be on a beta-morelia perioperatively and postoperatively. He has already been started on this medication and tolerating it well. 2. The patient does have aortic root enlargement at 4.5 cm. Recommend medical management with follow-up in 3 to 6 months. 3. He does have an infrarenal 4. his blood pressure is slightly elevated this morning but has been under good control until now. We will continue to follow this and make adjustments if necessary. 5. His LDL goal is less than 100. 6. No further recommendations at this time from a cardiac standpoint. We will be available by phone if the patient has any other cardiac issues that arise during this hospitalization. f/u in 1-2 weeks on an outpatient basis. Thank you for the opportunity to help par
--- NOTE | 2019-08-02 16:05 | P.PN_ITS ---
[facility] Anesthesia Checklist - Patient Identification Patient Identification: Arm Band - Structural Data Admitted From: Home Planned Operative Procedure/s: laparoscopic cholecystectomy with cholangiogram Consent for Planned Operative Procedure(s) Verified: Yes Verified Documents: Surgical Consent, History and Physical - NPO Status Verified Time NPO: 00:00 - Additional verifications Anesthesia Reactions: No - Airway Assessment C-Spine Mobility Assessed: Yes (mp2) TMJ Mobility Assessed: Yes Dentition: Good Dentition - Neurological Assessment Level of Consciousness: Awake, Alert - Anesthesia Plan Anesthesia Risk discussed: Yes Anesthesia Plan: Verified ASA Class: II Anesthesia Type: General [facility] History I have reviewed the patient's past medical history: Yes Medical History: Denies:: Cancer, Diabetes Mellitus Type 1, Diabetes Mellitus Type 2, MRSA *Have you ever received a pneumonia vaccine?: No *Have you received a flu vaccine this season?: Yes Anesthesia experience/problems:: nac Laterality Cases: Bilateral: Other Other Surgeries: Yes: Hernia Repair (Inguinal), Other Amputation: No Fractures: Yes (LT Ankle) - *Social History Educational Level: Attended Grade School Smoking Status: Never smoker Alcohol Intake: never Substance Use Type: denies use *Occupational Status:: employed Housing: house Household Members: spouse *Travel in the last 8 weeks: None Family Hx:: Diabetes, no Cancer, no Coronary Artery Disease, no Stroke
--- NOTE | 2019-08-02 17:03 | HMH.OPNOTE ---
Date of procedure: 08/02/19 Pre-op Diagnosis:: Biliary pancreatitis Post-op Diagnosis:: Same Procedure performed:: Laparoscopic cholecystectomy with intraoperative cholangiogram Surgeon:: Mitch Henderson MD AUGER SUPERVISOR:: Sacha Todd Anesthesia: GETJagdish Estimated blood loss (mL): 20 Clinical Note:: Patient is a very pleasant 64-year-old male who presented 3 days ago with radiographic and chemical evidence of pancreatitis. He underwent ultrasound which revealed gallstones. Yesterday surgical consultation was obtained. It was felt that the patient had resolving biliary pancreatitis. Plan was made for cholecystectomy with intraoperative cholangiogram. Operative findings:: Patient had appreciable fatty liver. He had a markedly distended and somewhat edematous gallbladder. Intraoperative cholangiogram revealed no filling defect or obstruction definitively. Final report is pending at the time of this dictation. Operative note:: Patient was taken to the operating room. He was given preoperative intravenous antibiotics. In the operating room he was placed in a supine position. General anesthesia was induced via endotracheal tube. Abdomen was prepped and draped in the standard surgical fashion. Subumbilical skin incision was made and while performing abdominal wall lift Veress needle was inserted. CO2 pneumoperitoneum was achieved to 15 mmHg. 11 mm optical trocar was inserted at the umbilicus. Intraperitoneal contents were visualized. Patient was positioned in reverse Trendelenburg left side down. A couple of 5 mm trochars were inserted in the right upper abdomen. 10 mm trocar was inserted in the epigastrium. He had appreciable fatty infiltration of the liver. Gallbladder was grasped retracted anteriorly and superiorly over the dome of the liver. There were some adhesions of omentum to the gallbladder which were taken down using blunt dissection. Gallbladder was markedly elongated and distended. Infundibulum of the gallbladder was retracted anterior laterally. Blunt dissection was carried out the neck of the gallbladder bluntly incising the visceral peritoneum. Cystic duct was identified. It was clipped proximal to the gallbladder. Through a 2 mm incision in the right subcostal area taut cholangiocatheter was inserted through the introducer. Small incision was made in the cystic duct. Cholangiocatheter was manipulated into the cystic duct and secured with a Hemoclip. Intraoperative cholangiogram was performed using fluoroscopy. There was no evidence of any filling defect or obstruction. The Hemoclip was removed and cholangiocatheter was removed. Cystic duct was multiply clipped and then divided. Cystic artery was carefully coagulated with NARINDER ultrasonic harmonic job and divided. Gallbladder was dissected free from the liver in a retrograde fashion using NARINDER ultrasonic robotic job. Gallbladder is rather edematous and there was acute inflammatory response with the gallbladder somewhat peeled spontaneously from the liver at times. There was some unavoidable spillage of bile during the dissection process and this was suctioned free. Gallbladder was placed with an Endo Catch retrieval device and removed from the peritoneal cavity via the umbilical trocar site. Gallbladder fossa and perihepatic space were thoroughly irrigated and aspirated until clear. There appeared to be good hemostasis. Trochars were removed as CO2 pneumoperitoneum was evacuated. Fascia at the umbilicus was closed with a couple of 0 Vicryl sutures. Local anesthetic was infiltrated in all incisions. Skin incisions were closed with 4-0 Monocryl in a subcuticular fashion. Steri-Strips and dressings were applied. Condition: stable Disposition: PACU Specimens:: Gallbladder and contents Complications:: None immediately apparent
--- NOTE | 2019-08-02 17:19 | P.PN_ITS ---
[facility] Anesthesia Record Part I Intake, IV Amount: 1,500 Estimated blood loss (mL): 10 Urine output (mL): 0 Blood Pressure: 117/61 SaO2: 98 Pulse Rate: 54 Respiratory Rate: 16 Temperature: 97.1 F Patient is:: Drowsy, Stable Stable to PACU at:: 17:15
--- NOTE | 2019-08-02 18:10 | PC.NURSE ---
PATIENT ARRIVED ON FLOOR VIA BED, PATIENT A&O X4, LUNGS CLEAR, PULSES EQUAL. PATIENT ATE DINNER AND TOLERATED WELL. NO CONCERNS OR NEEDS AT THIS TIME.
--- NOTE | 2019-08-02 19:13 | PC.NURSE ---
report given to lorie
[2019-08-03] VITALS: PULSE 70
[2019-08-03 00:55] VITALS: BP 124/65; PULSE 75; RESP 16; TEMP 36.9; O2SAT 94
[2019-08-03 04:00] VITALS: BP 136/71; PULSE 50; PULSE 57; RESP 18; TEMP 36.7; O2SAT 96
[2019-08-03 05:00] VITALS: BMI 26.3
--- NOTE | 2019-08-03 06:38 | HMH.GSPN ---
Subjective Patient reports: no new complaints, feels better Exam Vital signs and Labs for Last 24 Hours: Temp Pulse Resp BP Pulse Ox 98.0 F 57 L 18 136/71 96 08/03/19 04:00 08/03/19 04:00 08/03/19 04:00 08/03/19 04:00 08/03/19 04:00 I & O for Last 24 hours: Intake & Output 07/31/19 08/01/19 08/02/19 08/03/19 11:59 11:59 11:59 11:59 Intake Total 1554 / 1554 3190 / 3190 580 / 580 1500 / 1500 Output Total 175 / 175 Balance 1553 / 1553 3190 / 3190 580 / 580 1325 / 1325 Weight 160 lb 2 oz 162 lb 8 oz 162 lb 4 oz 158 lb 3 oz - Constitutional no acute distress - *Routine Respiratory Exam Absent: respiratory distress - *Routine Cardiovascular Exam Present: bradycardia - *Routine Abdominal Exam Present: soft Comments: Dressings intact. The periumbilical dressing has become essentially soaked with sanguinous fluid. This is been removed and replaced with a dry pressure dressing. No evidence of cellulitis noted. Progress Note: A&P (1) Abdominal aortic aneurysm Status: Acute Current Visit: Yes (2) Abnormal results of liver function studies Status: Acute Current Visit: Yes (3) Abdominal pain Status: Acute Current Visit: Yes (4) Acute pancreatitis Status: Acute Current Visit: Yes (5) Cholelithiasis and cholecystitis without obstruction Status: Acute Assessment and plan: Overall, doing fairly well status post laparoscopic cholecystectomy with intraoperative cholangiogram. Okay from surgical standpoint for discharge home with outpatient follow-up. Current Visit: Yes (6) Cardiomegaly Status: Acute Current Visit: Yes (7) Aortic root enlargement Status: Acute Current Visit: Yes
--- NOTE | 2019-08-03 07:54 | HMH.ACPN ---
Internal Medicine - PN: Subj *Date: 08/03/19 *Time: 07:54 Exam Vital signs and Labs for Last 24 Hours: Temp Pulse Resp BP Pulse Ox 98.0 F 57 L 18 136/71 96 08/03/19 04:00 08/03/19 04:00 08/03/19 04:00 08/03/19 04:00 08/03/19 04:00 I & O for Last 24 hours: Intake & Output 07/31/19 08/01/19 08/02/19 08/03/19 23:59 23:59 23:59 23:59 Intake Total 2769 / 2769 2380 / 2380 1600 / 1700 100 / 100 Output Total 175 / 175 Balance 2768 / 2768 2380 / 2380 1425 / 1525 100 / 100 Weight 72.631 kg 73.709 kg 73.595 kg 71.753 kg Assessment and Plan (1) Abdominal aortic aneurysm Current visit: Yes Status: Acute Category: Medical Code(s): I71.4 - Abdominal aortic aneurysm, without rupture (2) Abnormal results of liver function studies Current visit: Yes Status: Acute Category: Medical Code(s): R94.5 - Abnormal results of liver function studies (3) Abdominal pain Current visit: Yes Status: Acute Category: Medical Code(s): R10.9 - Unspecified abdominal pain (4) Acute pancreatitis Current visit: Yes Status: Acute Category: Medical Code(s): K85.90 - Acute pancreatitis without necrosis or infection, unspecified (5) Cholelithiasis and cholecystitis without obstruction Current visit: Yes Status: Acute Category: Medical Code(s): K80.10 - Calculus of gallbladder with chronic cholecystitis without obstruction (6) Cardiomegaly Current visit: Yes Status: Acute Category: Medical Code(s): I51.7 - Cardiomegaly (7) Aortic root enlargement Current visit: Yes Status: Acute Category: Medical Code(s): I77.89 - Other specified disorders of arteries and arterioles The patient's infection will respond to the chosen ABx?: Yes Is the patient receiving the right drug, dose, and route?: Yes Could a more targeted ABx be ordered?: No
[2019-08-03 08:00] VITALS: BP 128/70; PULSE 64; RESP 16; TEMP 36.8; O2SAT 95
--- NOTE | 2019-08-03 08:00 | HMH.ANESII ---
[facility] Anesthesia Record Part II Discharge Time: 18:25 Destination: Medical Surgical Department PACU nurse assessment reviewed?: Yes Patient Condition:: Good Anesthesia Complications:: None Swallowing reflex intact?: Yes Cyanosis?: No Blood Pressure: 141/73 Pulse Rate: 70 Temperature: 97.6 F Mental Status: Alert & Oriented Pain level:: 0 Nausea and/or vomitting:: None Intake, IV Amount: 0
--- NOTE | 2019-08-03 08:01 | HMH.PNCARD ---
Subjective Date: 08/03/19 Time: 08:01 Principal diagnosis: Abdominal discomfort Interval history: 64-year-old male in bed in no acute distress. Patient has been eating without complications. Denies chest pain, pressure or tightness. He is tolerating the bisoprolol without problems. Exam Vital signs and Labs for Last 24 Hours: Temp Pulse Resp BP Pulse Ox 98.0 F 57 L 18 136/71 96 08/03/19 04:00 08/03/19 04:00 08/03/19 04:00 08/03/19 04:00 08/03/19 04:00 I & O for Last 24 hours: Intake & Output 07/31/19 08/01/19 08/02/19 08/03/19 11:59 11:59 11:59 11:59 Intake Total 1554 / 1554 3190 / 3190 580 / 580 1600 / 1600 Output Total 175 / 175 Balance 1553 / 1553 3190 / 3190 580 / 580 1425 / 1425 Weight 160 lb 2 oz 162 lb 8 oz 162 lb 4 oz 158 lb 3 oz - *Routine Respiratory Exam Present: CTA bilaterally. Absent: accessory muscle use, rales, rhonchi, wheezes - *Routine Cardiovascular Exam Present: RRR. Absent: murmur, gallop, rubs - *Routine Neurological Exam Present: alert, oriented X3, moving all extremities Progress Note: A&P (1) Abdominal aortic aneurysm Status: Acute Current Visit: Yes (2) Abnormal results of liver function studies Status: Acute Current Visit: Yes (3) Abdominal pain Status: Acute Current Visit: Yes (4) Acute pancreatitis Status: Acute Current Visit: Yes (5) Cholelithiasis and cholecystitis without obstruction Status: Acute Current Visit: Yes (6) Cardiomegaly Status: Acute Current Visit: Yes (7) Aortic root enlargement Status: Acute Current Visit: Yes Assessment and Plan for All Diagnoses:: 1. Cardiac status stable on bisoprolol therapy. Aortic root enlargement/ascending aortic enlargement and infrarenal abdominal aortic aneurysm, clinically stable at this time. Continue bisoprolol therapy. Plan to repeat imaging for evaluation in the next 3 to 6 months. 2. Gallstone pancreatitis, status post cholecystectomy. Clinically stable per surgeons. Okay for discharge home from cardiology standpoint with follow-up in 2 weeks.
[2019-08-03 08:03] VITALS: BP 141/73; PULSE 70; TEMP 36.4
--- NOTE | 2019-08-03 08:32 | P.PN_ITS ---
Internal Medicine - PN: Subj *Date: 08/03/19 *Time: 08:32 Interval history: Patient had a cholecystectomy yesterday and has tolerated the procedure well. He has minimal pain and has been able to tolerate a diet. He is been up walking around his room and is anxious to go home. Exam Vital signs and Labs for Last 24 Hours: Temp Pulse Resp BP Pulse Ox 97.6 F 70 18 141/73 H 96 08/03/19 08:03 08/03/19 08:03 08/03/19 04:00 08/03/19 08:03 08/03/19 04:00 I & O for Last 24 hours: Intake & Output 07/31/19 08/01/19 08/02/19 08/03/19 11:59 11:59 11:59 11:59 Intake Total 1554 / 1554 3190 / 3190 580 / 580 1600 / 1600 Output Total 175 / 175 Balance 1553 / 1553 3190 / 3190 580 / 580 1425 / 1425 Weight 160 lb 2 oz 162 lb 8 oz 162 lb 4 oz 158 lb 3 oz - Constitutional no acute distress - *Routine Respiratory Exam Present: CTA bilaterally - *Routine Cardiovascular Exam Present: RRR - *Routine Abdominal Exam Present: soft, normoactive bowel sounds, tenderness (around surgical sites) - *Routine Extremities Exam Absent: cyanosis, clubbing, edema - *Routine Skin Exam Present: warm. Absent: rash - *Routine Neurological Exam Present: alert, oriented X3 Assessment and Plan (1) Abdominal aortic aneurysm Current visit: Yes Status: Acute Category: Medical Code(s): I71.4 - Abdominal aortic aneurysm, without rupture (2) Abnormal results of liver function studies Current visit: Yes Status: Acute Category: Medical Code(s): R94.5 - Abnormal results of liver function studies (3) Abdominal pain Current visit: Yes Status: Acute Category: Medical Code(s): R10.9 - Unspecified abdominal pain (4) Acute pancreatitis Current visit: Yes Status: Acute Category: Medical Code(s): K85.90 - Acute pancreatitis without necrosis or infection, unspecified (5) Cholelithiasis and cholecystitis without obstruction Current visit: Yes Status: Acute Category: Medical Code(s): K80.10 - Calculus of gallbladder with chronic cholecystitis without obstruction (6) Cardiomegaly Current visit: Yes Status: Acute Category: Medical Code(s): I51.7 - Ca rdiomegaly (7) Aortic root enlargement Current visit: Yes Status: Acute Category: Medical Code(s): I77.89 - Other specified disorders of arteries and arterioles - Assessment and plan all Dx Assessment and Plan for all problems:: Patient has been cleared for discharge by cardiology and surgery. He will need follow-ups with both specialists.
--- NOTE | 2019-08-03 11:24 | PC.NURSE ---
Pt up and ambulating in the room independently. Eager to be discharged today. No complaints voiced, does admit to some tenderness in abdomen. Dressing C/D/I. Passing flatus this AM. Family at bedside.
--- NOTE | 2019-08-03 14:43 | HMH.DCSUM ---
General - General Admission date:: 07/30/19 Discharge date: 08/03/19 HPI HPI: Mr. Holloway is a 64-year-old male who is relatively healthy and takes no medications. He presented to the emergency room yesterday p.m. after experiencing increasing upper abdominal pain since 3AM. He states he did experience some nausea and he did vomit a few times. He denies diarrhea. He denies fever. He denies any upper respiratory symptoms. Describes belching and some bloating. He states he had a similar episode about 3 weeks ago with severe upper quadrant pain associated with nausea and vomiting. He states it did resolve until yesterday. He cannot correlate his pain with eating any type of foods. He states he eats [place] food. He does not drink alcohol and he does not use tobacco. With evaluation in the emergency room his white blood cell count was found to be 12,100. CT of the abdomen revealed early pancreatitis. Amylase and lipase were elevated. Patient was admitted and started on IV fluids and antibiotics. This morning patient is feeling better. He has had some abdominal discomfort but nothing severe. Hospital Course Hospital Course: The patient was admitted with his lipids and A1c were checked as was the right upper quadrant ultrasound. Right upper quadrant ultrasound showed a distended gallbladder with cholelithiasis, sludge, thickened wall, and a minimal amount of pericholecystic fluid. It also showed an abdominal aortic aneurysm. His lipids and A1c were normal. He was started on a low-fat diet and had no further nausea or abdominal pain. He did experience some diarrhea. His bilirubin decreased as did his liver function tests. His amylase and lipase improved as well as his CBC. Surgery was consulted. He was seen by Dr. Henderson who felt his pancreatitis was biliary in nature. He felt the patient would need a cholecystectomy with cholangiogram. He also felt he would need a cardiology consult due to an incidental finding of a 3.9 cm abdominal aortic aneurysm. Cardiology saw the patient and ordered an echo which showed a preserved LVEF. It showed an aortic root enlargement at 4.5 cm. The patient was started on a beta-morelia and cardiology wanted follow-up imaging in 3 to 6 months. They did feel the patient was an acceptable risk for surgery. The patient had a cholecystectomy on 08/02/2019 and had a markedly distended and somewhat edematous gallbladder. Intraoperative cholangiogram revealed no filling defect or obstruction definitively. The patient tolerated the procedure well and was able to eat solid food after the procedure. He had no further vomiting or diarrhea and only had pain along the incision sites. Dr. Ross saw the patient in follow-up and changed his periumbilical dressing which became soaked with serosanguineous fluid. He was stable to be discharged home and he will follow-up with both cardiology and with surgery. He was discharged home on bisoprolol. Objective Vital signs: Temp Pulse Resp BP Pulse Ox 97.6 F 70 16 141/73 H 95 08/03/19 08:03 08/03/19 08:03 08/03/19 08:00 08/03/19 08:03 08/03/19 08:00 Narrative: - Constitutional no acute distress Comments: Appears comfortable. - *Routine HEENT Exam Head: Present: normocephalic, atraumatic Eye: Present: PERRL. Absent: conjunctival icterus, scleral injection ENT: Present: mucous membranes moist, oropharynx clear - *Routine Neck Exam Present: supple. Absent: carotid bruit, lymphadenopathy, thyromegaly - *Routine Respiratory Exam Present: CTA bilaterally (Anteriorly and posteriorly) - *Routine Cardiovascular Exam Present: RRR - *Routine Abdominal Exam Present: soft, normoactive bowel sounds. Absent: tenderness, distended, guarding - *Routine Extremities Exam Absent: edema, calf tenderness - *Routine Neurological Exam Present: alert, oriented X3 DS: Diagnosis - Discharge Diagnosis (1) Abdominal aortic aneurysm Status: A
== END 2019-08-03 12:40 | disposition home or self-care (01) | DRG 417 ==
LOC: ER 16:06 → 2ND 17:58
PROVIDERS: Nurse Practitioner Family; Surgery; Admitting Provider Family Medicine; Emergency Provider Family Medicine; Visit Provider Family Medicine
PROC: 0FT44ZZ Resection of Gallbladder, Percutaneous Endoscopic Approach (ICD-10-PCS; CPT 47562; principal; 2019-08-02 13:45)
DX: K80.12 Calculus of gallbladder with acute and chronic cholecystitis without obstruction (principal); K85.10 Biliary acute pancreatitis without necrosis or infection; I71.4 Abdominal aortic aneurysm, without rupture; I51.7 Cardiomegaly
CPT/HCPCS: 47563; 36415; 71250; 74176; 74300; 76705; 80048; 80053; 80061; 80076; 82150; 83036; 83690; 84484; 85007; 85025; 93005; 93306; 99282; 99283; J2405; J2543; J2710; Q9967

== ENCOUNTER → 2019-08-28 06:09 | Outpatient (CLI) | payer MEDICAID, SELFPAY ==
--- NOTE | 2019-08-28 06:10 | CA_ITS ---
APPROVED REPORT Exam: Pharmacologic Technologist: alejandro wilkins, Ht: 5 ft 5 in Wt: 165 lbs BSA: 1.82 m2 HR: 58 bpm BP: 155/74 mmHg Indications: CP Medical History Medications: Asa,,,,, Losartan,,,,, BisOPROLOL,,,,, RoSUVASTATIN,,,,, Allergies: No known drug allergies Cardiac Risk Factors: HTN Stress Test Details Test: LEXISCAN HR Resting HR: 55 bpm Max Heart Rate (APMHR): 158 bpm Max HR Achieved: 90 bpm Target HR (85% APMHR): 134 bpm % of APMHR: 56 Recovery HR: 71 bpm BP Resting BP: 155/74 mmHg Max BP: 155/74 mmHg Recovery BP: 147.0/83.0 mmHg ECG Resting ECG: Sinus Anirudh with T wave inversion in 3 and AVF Clinical Reason for Termination: Completed Protocol Exercise duration: 04:03 min Highest Stage Achieved: Exercise capacity: 1.0 METs Stress ECG Conclusion Lexiscan completed. No chest pain or SOB. Less than 1.5mm ST Segment changes. Non-Diagnostic. Electronically signed by : Sergei French, 09/01/2019 12:25:00
--- NOTE | 2019-08-28 06:15 | NM_ITS ---
APPROVED REPORT Exam: Nuclear Stress Test Indication: Chest pain, HTN Patient Location: Outpatient Stress Tech: Henny Cortes ME Tech:JUDAH Jolly, RT (R)(N) Ht: 5 ft 5 in Wt: 165 lbs HR: 58 bpm BP: 155/74 mmHg BSA: 1.82 m2 BMI: 27.4 History: Chest pain, HTN Procedure: Patient received a 0.4 mg of intravenous Lexiscan, resting heart rate 58 bpm, resting blood pressure 155/74 mmHg, with Lexiscan maximum heart rate achived was 87 bpm which is % of the maximum predicted heart rate and blood pressure was 155/74 mmHg. With Lexiscan, patient denied any complaint of chest pain. Cardiac Stress and Resting SPECT Images: Cardiac Stress and Resting SPECT images were obtained using technetium 99m Myoview 32.3 mCi stress and 10.24 mCi at rest. Ejection fraction is lower normal at 54% with apical akinesia and dyskinesia along the inferoseptal region toward the base of the heart. No fixed or reversible defects. No evidence of ischemia or infarction Conclusion: Ejection fraction is lower normal at 54% with apical akinesia and dyskinesia along the inferoseptal region toward the base of the heart. No fixed or reversible defects. No evidence of ischemia or infarction Electronically signed by : Carter Dobbins MD 09/01/2019 14:19:26
--- NOTE | 2019-08-28 07:14 | CA_ITS ---
APPROVED REPORT Visual Display Manager: KRISH Laterality: Bilateral Indications: carotid bruit Doppler Spectral Velocity Analysis dICA (R) 77.70/22.10 cm/s dICA (L) 61.20/20.00 cm/s Mayo (R) 46.30/15.00 cm/s Mayo (L) 58.50/16.90 cm/s pICA (R) 39.80/9.90 cm/s pICA (L) 34.60/9.20 cm/s dCCA (R) 55.70/11.40 cm/s dCCA (L) 62.80/13.60 cm/s pCCA (R) 75.10/14.10 cm/s pCCA (L) 90.80/16.40 cm/s Vert (R) 28.20/4.80 cm/s Vert (L) 35.80/10.40 cm/s ICA/CCA 1.40 ICA/CCA 1.00 Findings Duplex evaluation demonstrates stenosis of the right proximal internal carotid artery <20% with PSV <140 cm/sec, EDV <100 cm/sec, and IC/CC Ratio <4.0.Duplex evaluation demonstrates stenosis of the left proximal internal carotid artery <20% with PSV <140 cm/sec, EDV <100 cm/sec, and IC/CC Ratio <4.0.Antegrade flow seen bilateral vertebral arteries. Conclusion No increased velocities to suggest hemodynamically significant stenosis in either internal carotid artery. Electronically signed by : Carter Dobbins MD 08/28/2019 18:08:32
--- NOTE | 2019-08-28 07:16 | HMH.ITSHM ---
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 []ROSUVASTATIN ASA LOSARTAN BISOPROLOL
== END ==
PROVIDERS: Visit Provider Internal Medicine Cardiovascular Disease
DX: I71.4 Abdominal aortic aneurysm, without rupture (principal); I77.89 Other specified disorders of arteries and arterioles
CPT/HCPCS: 78452; 93017; 93880; A9502; J2785

== ENCOUNTER → 2020-06-21 14:39 | Outpatient (CLI) | payer OTHER, SELFPAY ==
--- NOTE | 2020-06-21 14:39 | CT_ITS ---
PROCEDURE: CT ABDOMEN PELVIS WO CON CLINICAL INDICATION: AAA follow-up abdominal aortic aneurysm COMPARISON: CT CT ABDOMEN PELVIS WO CON from 07/30/2019 TECHNIQUE: Axial images obtained with sagittal and coronal reformats. All CT scans at the facility use one or more dose reduction, viz: automated exposure control, ma/kV adjustment per patient size (including targeted exams where dose is matched to indication, i.e. head), or iterative reconstruction technique. FINDINGS: LOWER THORAX: There are mild fibrotic changes in the right lung base medially and within the lingula. ABDOMEN & PELVIS: Prior cholecystectomy. The liver, spleen, adrenal glands, and pancreas has an unremarkable unenhanced CT appearance. No obvious renal or ureteral calculi or hydronephrosis. Mild fusiform dilatation of the infrarenal abdominal aorta is once again noted 3.4 cm transverse and 3.6 cm in AP dimension overall not significantly changed. No evidence of acute retroperitoneal hemorrhage. There are few scattered small retroperitoneal lymph nodes not significantly changed. There is tortuosity and ectasia of the common iliac arteries measuring up to 1.5 cm on the right and 1.2 cm on the left unchanged. No intestinal obstruction or free air. No evidence of appendicitis. There is a moderate amount of retained colonic feces. Prostate is enlarged at 4.6 cm. There is a small right inguinal hernia containing fat. There are few colonic diverticula but no evidence of diverticulitis. Mild degenerative changes in the lumbar spine IMPRESSION: 1. Overall no change in the 3.4 x 3.6 cm infrarenal abdominal aortic aneurysm. No evidence of acute retroperitoneal hemorrhage. 2. Mild colonic diverticulosis without diverticulitis with a moderate amount of retained colonic feces. Dictated by: Carter Dobbins MD 06/22/2020 13:38 Carter Dobbins MD in [place] 06/22/2020 13:38
== END ==
PROVIDERS: Visit Provider Urology
DX: I71.4 Abdominal aortic aneurysm, without rupture (principal); I10 Essential (primary) hypertension
CPT/HCPCS: 74176

== ENCOUNTER → 2020-11-12 08:11 | Outpatient (CLI) | payer OTHER, SELFPAY ==
[2020-11-12 09:44] LABS: Alanine Aminotransferase 34 U/L (12-78); Albumin Level 3.9 g/dl (3.5-5.0); Alkaline Phosphatase 102 U/L (38-126); Aspartate Amino Transferase 35 U/L (17-59); Bilirubin,Direct 0.1 mg/dl (0.0-0.4); Bilirubin,Indirect 0.4 mg/dL (0.0-0.9); Bilirubin,Total 0.5 mg/dl (0.2-1.3); Bilirubin,Unconjugated 0.4 mg/dL (0.0-1.1); Chol/HDL Ratio 3.5 (1-3.5); Cholesterol 121 mg/dl (140-200); HDL Cholesterol 35 mg/dl (40-60); Total Protein,Serum 6.8 g/dl (6.3-8.2); Triglycerides 120 mg/dl (30-150); VLDL Cholesterol 24 mg/dL (0-40)
[2020-11-12 09:55] LABS: Direct LDL Cholesterol 56.62 mg/dL (100-129)
== END ==
PROVIDERS: Visit Provider Internal Medicine
DX: E11.9 Type 2 diabetes mellitus without complications (principal); I11.9 Hypertensive heart disease without heart failure
CPT/HCPCS: 36415; 80061; 80076

== ENCOUNTER → 2021-06-24 13:04 | Outpatient (CLI) | payer SELFPAY ==
--- NOTE | 2021-06-24 13:31 | CT_ITS ---
FINAL REPORT TECHNIQUE: Thin section axial CT images were obtained from the lung apices to the upper abdomen. IV contrast was administered. MIP 3-D reformats were obtained. This study was performed with techniques to keep radiation doses as low as reasonably achievable (ALARA). Individualized dose reduction techniques using automated exposure control or adjustment of mA and/or kV according to the patient's size were employed. CLINICAL HISTORY: thoracic /abdominal aneurysm FINDINGS: The heart size is normal. There is no adenopathy. The mediastinal vasculature is well opacified. There is no filling defect to suggest PE. The ascending aorta measures up to 4.0 cm. There is no pericardial effusion. There is no suspicious infiltrate or nodule. There is scarring in the lung bases. No pleural effusion. IMPRESSION: Ascending thoracic aorta measures up to 4.0 cm. Reviewed, Interpreted and Dictated by Juan Carlos Bello MD Transcribed by Alli Tucker Authenticated by Juan Carlos Bello MD on 06/24/2021 04:21:36 PM [facility]
--- NOTE | 2021-06-24 13:31 | CT_ITS ---
FINAL REPORT CLINICAL HISTORY: AAA FINDINGS: Post contrast axial imaging of the abdomen was obtained and reviewed. Coronal and sagittal reformatted images were submitted. This study was performed with techniques to keep radiation doses as low as reasonably achievable (ALARA). Individualized dose reduction techniques using automated exposure control or adjustment of mA and/or kV according to the patient's size were employed. There is an abdominal aortic aneurysm measuring 3.7 x 3.6 cm. There is no evidence of aortic stenosis. The celiac axis, superior mesenteric artery and inferior mesenteric artery are patent without stenosis. There are widely patent single renal arteries. There is ectasia of the common iliac arteries up to 1.4 cm on the right and 1.3 cm on the left. The internal iliac arteries are patent. Evaluation of the remainder of the abdomen demonstrates mild fatty infiltration of the liver. The gallbladder is absent. The spleen, pancreas, adrenal glands and kidneys are unremarkable. IMPRESSION: Abdominal aortic aneurysm up to 3.7 cm. Ectasia of the common iliac arteries. Reviewed, Interpreted and Dictated by Juan Carlos Bello MD Transcribed by Alli Tucker Authenticated by Juan Carlos Bello MD on 06/24/2021 04:21:[address] [facility]
[2021-06-24 13:57] LABS: Blood Urea Nitrogen 18 mg/dl (9-20); Estimated Glomerular Filt Rate 136 ml/min (>60); GFR (African American) 164 ML/MIN (>60)
== END ==
PROVIDERS: Visit Provider Internal Medicine Cardiovascular Disease
DX: I71.4 Abdominal aortic aneurysm, without rupture (principal); I77.89 Other specified disorders of arteries and arterioles; R09.89 Other specified symptoms and signs involving the circulatory and respiratory systems; I10 Essential (primary) hypertension; I71.2 Thoracic aortic aneurysm, without rupture
CPT/HCPCS: 36415; 71275; 74175; 82565; 84520; Q9967

== ENCOUNTER 2022-07-11 10:18 | Emergency (ER) | payer SELFPAY ==
[2022-07-11 10:18] VITALS: BP 172/75; PULSE 58; RESP 16; TEMP 36.6; O2SAT 97; BMI 29.2
--- NOTE | 2022-07-11 10:25 | CT_ITS ---
PROCEDURE INFORMATION: Exam: CT Head Without Contrast Exam date and time: 07/11/2022 10:47 AM Age: 67 years old Clinical indication: Injury or trauma; Fall; Blunt trauma (contusions or hematomas) and laceration; Without residual foreign body; Other: Posterior head; Additional info: Blunt trauma, posterior scalp lac TECHNIQUE: Imaging protocol: Computed tomography of the head without contrast. Radiation optimization: All CT scans at this facility use at least one of these dose optimization techniques: automated exposure control; mA and/or kV adjustment per patient size (includes targeted exams where dose is matched to clinical indication); or iterative reconstruction. REPORTING DATA: Count of CT and Cardiac NM exams in prior 12 months: This patient has received 0 known CTs and 0 known cardiac nuclear medicine studies in the 12 months prior to the current study. COMPARISON: US CA CAROTID DUPLEX BI 08/28/2019 8:17 AM FINDINGS: Brain: Occipital cephalohematoma. Cerebral ventricles: No ventriculomegaly. Paranasal sinuses: Visualized sinuses are unremarkable. No fluid levels. Mastoid air cells: Visualized mastoid air cells are well aerated. Bones/joints: Unremarkable. No acute fracture. Soft tissues: Unremarkable. IMPRESSION: No acute intracranial findings by CT criteria. Occipital cephalohematoma.
--- NOTE | 2022-07-11 10:25 | CT_ITS ---
PROCEDURE INFORMATION: Exam: CT Cervical Spine Without Contrast Exam date and time: 07/11/2022 10:47 AM Age: 67 years old Clinical indication: Injury or trauma; Fall; Blunt trauma and laceration; Not specified TECHNIQUE: Imaging protocol: Computed tomography of the cervical spine without contrast. Radiation optimization: All CT scans at this facility use at least one of these dose optimization techniques: automated exposure control; mA and/or kV adjustment per patient size (includes targeted exams where dose is matched to clinical indication); or iterative reconstruction. REPORTING DATA: Count of CT and Cardiac NM exams in prior 12 months: This patient has received 0 known CTs and 0 known cardiac nuclear medicine studies in the 12 months prior to the current study. COMPARISON: US CA CAROTID DUPLEX BI 08/28/2019 8:17 AM FINDINGS: Bones/joints: No acute fracture. Normal alignment. No significant disc bulge or herniation. No severe spinal canal stenosis. No significant neural foraminal narrowing. Lungs: Calcified nodule in visualized left lung apex. Soft tissues: Unremarkable. IMPRESSION: 1. Unremarkable study without acute findings. 2. Incidental left apical calcified nodule
[2022-07-11 10:31] VITALS: BP 183/103; PULSE 62; O2SAT 97
--- NOTE | 2022-07-11 10:48 | HMH.EDGENADL ---
Discharge Plan Disposition Patient Disposition: Home, Self-Care Chief Complaint: Wound/Laceration Prescriptions Prescriptions: No Action rosuvastatin 20 mg tablet 20 mg PO DAILY Qty: 90 3RF bisoprolol fumarate 5 mg tablet 2.5 mg PO DAILY Qty: 90 3RF aspirin [Adult Low Dose Aspirin] 81 mg tablet,delayed release (DR/EC) 81 mg PO DAILY Qty: 30 3RF losartan 50 mg tablet See Rx Instructions .ROUTE .COMPLEX Qty: 90 1RF Dose Instruction: Take 1 tablet by mouth once daily Rx Instructions: Take 1 tablet by mouth once daily Referrals Follow up/Referrals: Provider,Referral, MD [Primary Care Provider] - See instructions Activity Restrictions/Add. Instructions Additional Instructions/Restrictions: At this time was felt you are safe to be discharged home. If new or worsening symptoms please do not hesitate to return to the emergency department. Please follow-up with your family doctor to have your susana removed in 10 days. Clinical Impressions Clinical Impression: Blunt trauma, Laceration of scalp, Traumatic cephalohematoma Instructions Patient Instructions: DI for Laceration Repair Discharge ED Provider: Stanley Avilez General Adult HPI General Chief complaint: Wound/Laceration Stated complaint: Head lac Time Seen by Provider: 07/11/22 10:40 History of Present Illness HPI narrative: Patient is a 67-year-old male with past medical history of hypertension, coronary artery disease on aspirin who presents emergency department for evaluation of blunt trauma. Patient was reportedly unloading a cow when a gate was struck by the calf striking him in the head with positive LOC. Patient had slow return to baseline prior to arrival. Patient does not take anticoagulation. He has no complaints upon arrival. Specifically he denies headache or neck pain. No other acute traumatic complaints at this time. Tdap greater than 5 years ago. Related Data Previous Rx's Medication Instructions Recorded aspirin 81 mg tablet,delayed 81 mg PO DAILY #30 tabs 08/17/19 release (Adult Low Dose Aspirin) bisoprolol fumarate 5 mg tablet 2.5 mg PO DAILY #90 tabs 06/20/21 rosuvastatin 20 mg tablet 20 mg PO DAILY #90 tabs 06/20/21 losartan 50 mg tablet See Rx Instructions .Route 05/07/22 .COMPLEX #90 tabs Allergies Allergy/AdvReac Type Severity Reaction Status Date / Time No Known Allergies Allergy Verified 01/23/22 09:57 [facility] Disclaimer: The information contained in this section may have been updated after the patient was seen, as this information can be updated by other users. 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 current occupational exposures/hazards: Yes caffeine: Yes ROS Obtained: Yes Systems reviewed as appropriate & no additional complaints except as documented Physical Exam General General appearance: alert and in no apparent distress Head Head exam: normocephalic and other (Patient has a 2 cm linear laceration over occipital scalp that is hemostatic.) Eye Eye exam: Present PERRL and EOMI ENT ENT exam: Present mucous membranes moist Neck Neck exam: Present normal inspection Chest Chest inspection: Present normal inspection and symmetric chest wall rise Respiratory Respiratory exam: Present normal lung sounds bilaterally; Absent respiratory distress Cardiovascular Cardiovascular exam: Present regular rate and normal rhythm Abdominal Exam Abdominal exam: Present soft; Absent tenderness Extremities Exam Extremities exam: Present normal inspection and full ROM; Abs
--- NOTE | 2022-07-11 10:58 | PC.NURSE ---
pt arrived back to room
[2022-07-11 11:08] VITALS: BP 145/76; PULSE 57; O2SAT 96
[2022-07-11 11:30] VITALS: BP 153/82; PULSE 56; O2SAT 97
[2022-07-11 12:05] VITALS: BP 147/79; PULSE 57; RESP 18; TEMP 36.6; O2SAT 97
== END 2022-07-11 12:06 | disposition home or self-care (01) ==
PROVIDERS: Emergency Provider Emergency Medicine
DX: S06.9X9A Unspecified intracranial injury with loss of consciousness of unspecified duration, initial encounter (principal); S01.01XA Laceration without foreign body of scalp, initial encounter; W22.8XXA Striking against or struck by other objects, initial encounter; Z23 Encounter for immunization
CPT/HCPCS: 12001; 70450; 72125; 90471; 90715; 96372; 99284; 99285

== ENCOUNTER → 2022-07-24 15:35 | Outpatient (CLI) | payer SELFPAY ==
--- NOTE | 2022-07-24 15:39 | XR_ITS ---
FINAL REPORT CLINICAL HISTORY: lt shoulder pain -- decreased rom FINDINGS: Left shoulder Three views were obtained. There is no acute fracture or dislocation. There are moderate degenerative changes. No soft tissue abnormality is identified. IMPRESSION: No acute process. Reviewed, Interpreted and Dictated by Junie Francis MD Transcribed by Amanda Marley Authenticated and [facility]
== END ==
PROVIDERS: PCP Nurse Practitioner; Visit Provider Nurse Practitioner
DX: M25.512 Pain in left shoulder (principal)
CPT/HCPCS: 73030

== ENCOUNTER → 2023-02-16 07:17 | Outpatient (CLI) | payer SELFPAY ==
[2023-02-16 09:53] LABS: Alanine Aminotransferase 199 U/L (12-78); Albumin Level 4.1 g/dl (3.5-5.0); Alkaline Phosphatase 398 U/L (38-126); Aspartate Amino Transferase 104 U/L (17-59); Bilirubin,Direct 0.3 mg/dl (0.0-0.4); Bilirubin,Indirect 0.4 mg/dL (0.0-0.9); Bilirubin,Total 0.7 mg/dl (0.2-1.3); Bilirubin,Unconjugated 0.5 mg/dL (0.0-1.1); Chol/HDL Ratio 3.6 (1-3.5); Cholesterol 142 mg/dl (140-200); HDL Cholesterol 39 mg/dl (40-60); Total Protein,Serum 7.5 g/dl (6.3-8.2); Triglycerides 154 mg/dl (30-150); VLDL Cholesterol 31 mg/dL (0-40)
[2023-02-16 10:10] LABS: Direct LDL Cholesterol 71.58 mg/dL (100-129)
== END ==
PROVIDERS: PCP Student in an Organized Health Care Education/Training Program; Visit Provider Nurse Practitioner
DX: I51.7 Cardiomegaly (principal); I71.40 Abdominal aortic aneurysm, without rupture, unspecified; I77.89 Other specified disorders of arteries and arterioles
CPT/HCPCS: 36415; 80061; 80076

== ENCOUNTER → 2023-02-19 12:23 | Outpatient (CLI) | payer SELFPAY ==
--- NOTE | 2023-02-19 12:24 | CT_ITS ---
FINAL REPORT CLINICAL HISTORY: AAA COMPARISON: 06/24/2021 FINDINGS: Thin section axial CT images of the chest were obtained with contrast. 3D reformatted images were also obtained. This study was performed with techniques to keep radiation doses as low as reasonably achievable (ALARA). Individualized dose reduction techniques using automated exposure control or adjustment of mA and/or kV according to the patient's size were employed. There is no evidence of pulmonary embolism. There is ectasia of the thoracic aorta up to 4 cm in diameter. No evidence of aortic dissection is seen. There is no evidence of mediastinal or hilar mass or adenopathy. There is no evidence of pulmonary mass or nodule. No localized inflammatory process is seen within the lungs. Mild scarring is present in the lung carrasco bilaterally. Limited images of the upper abdomen show mild right renal scarring. The gallbladder has been surgically removed. IMPRESSION: No evidence of pulmonary embolism. Ectasia of the thoracic aorta measuring up to 4 cm in size. No evidence of dissection is seen. Reviewed, Interpreted and Dictated by Mitch Ramos III, MD Transcribed by Maria T Willis Authenticated and . [facility]
--- NOTE | 2023-02-19 12:24 | CA_ITS ---
APPROVED REPORT EXAM: Comprehensive 2D, Doppler, and color-flow Echocardiogram Special Trackwork Blacksmith: Bebe Davis CRT Ht: 5 ft 5 in Wt: 164lbs BSA: 1.82 BP: 130/72 mmHg Indications: Shortness of Breath, Hypertension/HDD, cardiomegaly, AAA, ef 50% 08/01/19 2D Dimensions Left Atrium 4.23 cm LVEF (Fisher's) 48.10 % LVOT 1.99 cm (M/F) 1.5-2.5 LV Volume 115.60 mL LA Volume 41.10 mL LA Volume Index 22.60 mL/m2 (M/F) 16-34 EF AP4 48.50 % EF AP2 46.1 % EF BP 48.1 % GL Strain -19.6 % M-Mode Dimensions RVDd 2.07 cm (0.9-2.6) LVDd 4.79 cm (3.5-5.7) Ao Diam 4.30 cm (2.0-3.7) LVDs 3.07 cm (3.5-5.7) IVSd 1.38 cm (0.6-1.1) PWd 0.50 cm (0.6-1.1) EF (Teich) 65.40% FS 35.90% EDV (Teich) 107.00 mL TAPSE 2.04 (<1.7) ESV (Teich) 37.00 mL LV Diastology E Decel Time 317 (160-240 msec) E/A Ratio 0.77 Aortic Valve AoV Peak Lucio. 139.0 (50-130 cm/s) AI PHT 518.00 ms AO Peak GR. 7.70 mmHg Mitral Valve MV E Max Lucio. 76.0 (40-130 cm/s) MV A Velocity 98.0 (40-130 cm/s) E/A Ratio 0.77 MV Decel. Time 317 (160-240 ms) Tricuspid Valve TR P. Velocity 255.00 cm/s RAP Estimate 10.00 mmHg RVSP 36.00 mmHg Left Ventricle The left ventricle is normal size. The left ventricular systolic function is normal. The left ventricular ejection fraction is within the normal range. There is normal left ventricular wall thickness. There is normal LV segmental wall motion. Diastolic function is indeterminate. LVEF is 55%. Right Ventricle The right ventricle is normal size. The right ventricular systolic function is normal. Atria The left atrium size is normal. The right atrium size is normal. There is no Doppler evidence of interatrial shunt. Aortic Valve The aortic valve is trileaflet. The aortic valve opens well. There is no aortic valvular stenosis. Mild to moderate aortic regurgitation. Mitral Valve The mitral valve leaflets are mildly thickened. No evidence of mitral valve stenosis. Mild mitral regurgitation. Tricuspid Valve The tricuspid valve leaflets are thin and pliable. Mild tricuspid regurgitation. RVSP is 25-30 mmHg. Pulmonic Valve The pulmonary valve is normal in structure. Trace pulmonic regurgitation. Great Vessels The aortic root is normal in size. The ascending aorta is normal in size. IVC is normal in size and collapses >50% with inspiration. Pericardium There is no pericardial effusion. Other Information Study Quality: Fair Conclusion Normal biventricular systolic function. Mild to moderate AI. Mild MR. Mild TR. RVSP 25-30 mmHg. Electronically signed by : Maryjane Nowak MD 02/22/2023 21:14:08
[2023-02-19 14:27] LABS: Chloride 101 mmol/L (98-107); Sodium 137 mmol/L (136-145)
[2023-02-19 14:28] LABS: Potassium 4.2 mmoL/L (3.5-5.1)
[2023-02-19 14:30] LABS: Alanine Aminotransferase 179 U/L (12-78); Alkaline Phosphatase 410 U/L (38-126); Anion Gap 10.2 mEq/L (5-15); Aspartate Amino Transferase 112 U/L (17-59); Bilirubin,Direct 0.4 mg/dl (0.0-0.4); Bilirubin,Indirect 0.4 mg/dL (0.0-0.9); Bilirubin,Total 0.8 mg/dl (0.2-1.3); Bilirubin,Unconjugated 0.4 mg/dL (0.0-1.1); Blood Urea Nitrogen 20 mg/dl (9-20); Carbon Dioxide 30 mmol/L (22.0-30.0); Estimated Glomerular Filt Rate 113 ml/min (>60); GFR (African American) 137 ML/MIN (>60)
[2023-02-19 14:31] LABS: Albumin Level 4.2 g/dl (3.5-5.0); Calcium 9.3 mg/dl (8.4-10.2); Glucose 97 mg/dl (74-100); Total Protein,Serum 7.5 g/dl (6.3-8.2)
== END ==
LOC: RT 12:24
PROVIDERS: Internal Medicine; PCP Nurse Practitioner; Visit Provider Nurse Practitioner
DX: I71.40 Abdominal aortic aneurysm, without rupture, unspecified (principal); I11.9 Hypertensive heart disease without heart failure; I77.89 Other specified disorders of arteries and arterioles; R79.89 Other specified abnormal findings of blood chemistry
CPT/HCPCS: 36415; 71275; 80048; 80076; 93306; Q9967

== ENCOUNTER 2024-10-11 09:10 | Outpatient (CLI) | payer SELFPAY ==
--- OUTSIDE RECORDS SUMMARY | 2024-10-11 09:16 | XMS_ITS | Patient Health Record ---
Author Organization [facility] Address [address] [place], [place] [id number] Care Team Providers Care Sales Ledger Administrator Name Role Phone FRANK BARRY Primary Care Provider Allergies No Known Allergies Reason For Referral No Information Immunizations Vaccine Route Administration Date Status Comme nts Moderna Covid-19 MRNA-LNP 12+ IM Intramuscular 01/12/2024 Administered Afluria .05mL 3yr+ AVFC IM Intramuscular 01/12/2024 Admini stered Social History Sex Assigned At : Social History Observation Description Sex Assigned At Male Vital Signs Heart Rate 62 /min 01/12/2024 Temperature 98.6 degrees Fahrenheit 01/12/2024 Respiratory Rate 20 /min 01/12/2024 Height-cm 162.56 cm 01/12/2024 Blood pressure diastolic 86 mm Hg 01/12/2024 Oximetry 98 % 01/12/2024 Weight-kg 72.12 kg 01/12/2024 Height 64 in 01/12/2024 Blood pressure systolic 139 mm Hg 01/12/2024 Weight 159.0 lbs 01/12/2024 BMI 27.29 kg/m2 01/12/2024 Encounters Encounter Location Date Provider Diagnosis [address] [place] [address] 01/12/2024 FRANK BARRY Body mass index [BMI ] 27.0-27.9, adult Z68.27 ; Exercise counseling Z71.82 ; Dietary counseling Z71.3 and Encounter for immunization Z23 Assessments Encounter Date Diagnosis (ICD Code) Assessment Notes Treatment Notes Treatment Clinical Notes Section Notes 01/12/2024 Exercise counseling (ICD-10 - Z71.82) 01/12/2024 Body mass index [BMI] 27.0-27.9, adult (ICD-10 - Z68.27) 01/12/2024 Dietary counseling (ICD-10 - Z71.3) 01/12/2024 Encounter for immunization (ICD-10 - Z23) Plan Of Treatment No Information
--- OUTSIDE RECORDS SUMMARY | 2024-10-11 09:16 | XMS_ITS | Patient Health Record ---
Author Organization [facility] Address [address] [place] [address] Care Team Providers Care [employer] Industrial Arts Teacher Name Role Phone Suzan Herzog Unavailable [phone] Allergies No Known Allergies Reason For Referral No Information Medications Medication SIG (Take, Route, Frequency, Duration) Notes Start Date End Date Status Bisoprolol Fumarate 5 MG TAKE 1/2 (ONE-H GALOL) TABLET BY MOUTH ONCE DAILY Oral for 180 Days Active Losartan Potassium 50 MG TAKE 1 TABLET B Y MOUTH ONCE DAILY Oral for 90 Days Active Social History Tobacco Use: Social History Observation Description Date Details (start date - stop date) Never Smoker NA - NA Tobacco Control (Standard) Question Answer Notes Tobacco use: Nonsmoker Problems Problem Type SNOMED Code ICD Code Onset Dates Problem Status W/U Status Risk Notes Problem [id number] Essential hypertension (I10) Active confirmed Vital Signs Temperature 99.8 degrees Fahrenheit 06/09/2024 Respiratory Rate 16 /min 06/09/2024 Blood pressure diastolic 76 mm Hg 06/09/2024 Height 65 in 06/09/2024 Blood pressure systolic 124 mm Hg 06/09/2024 Weight 160 lbs 06/09/2024 BMI 26.62 kg/m2 06/09/2024 Encounters Encounter Location Date Provider Diagnosis [id number] [address] 06/09/2024 Suzan Herzog Bilateral non-suppurative otitis media H65.93 and Essential hypertension I10 Assessments Encounter Date Diagnosis (ICD Code) Assessment Notes Treatment Notes Treatment Clinical Notes Section Notes 06/09/2024 Bilateral non-suppurative otitis media (ICD-10 - H65.93) Recommend moist heat to ears three times a day as needed. Use tap water on warm-hot and wet a washcloth so it's damp but not dripping. Cover your entire ear x 10 minutes. This will help with the discomfort as well as help the fluid behind your ears drain before it becomes infected. Recommend Flonase (Fluticasone) nasal spray - one spray to each nostril once a day x 2-3 weeks. May continue for longer if you choose. DO NOT use Afrin or Mucinex nasal spray. They are different and should not be used for more than three days. Complete the entire course of antibiotics as prescribed, even when symptoms have improved, to prevent a relapse of infection and the development of antibiotic resistance. 06/09/2024 Essential hypertension (ICD-10 - I10) Plan Of Treatment No Information Insurance Providers Payer Name Payer Address Payer Phone Subscriber Number Group Number Insured Name Patient Relationship to Insured Coverage Start Date Coverage End Date PROMPT PAY/Bill to Patient Osman Holloway Self - patient is the insured Medical (General) History Medical History History ICD Code High blood pressure 401.9 Surgical History Surgery Date(Month/Year) L leg and ankle surgery hernia Hospitalization History Reason Date(Month/Year) see above
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
--- NOTE | 2024-10-11 09:30 | US_ITS ---
FINAL REPORT CLINICAL HISTORY: evaluate AAA COMPARISON: CT of the abdomen and pelvis 06/24/2021 FINDINGS: Sonographic images were obtained of the abdominal aorta. The abdominal aorta measures up to 4.1 cm in greatest dimension, was previously 3.7 cm. The common iliac arteries are within normal limits. IMPRESSION: Abdominal aortic aneurysm measuring up to 4.1 cm. This has increased in size since the prior CT of 2021. Reviewed, Interpreted and Dictated by Christiana Kline MD Transcribed by Maria T Willis Authenticated and [facility]
[2024-10-11 09:36] LABS: Blood Urea Nitrogen 19 mg/dl (9-20); Creatinine,Serum 0.70 mg/dl (0.66-1.25); Estimated Glomerular Filt Rate 112 ml/min (>60); GFR (African American) 136 ML/MIN (>60)
--- NOTE | 2024-10-11 10:00 | CT_ITS ---
FINAL REPORT TECHNIQUE: Axial imaging of the chest is obtained after the administration of contrast. 3-D MIP reformatted images were also obtained and reviewed per PE protocol. This study was performed with techniques to keep radiation doses as low as reasonably achievable (ALARA). Individualized dose reduction techniques using automated exposure control or adjustment of mA and/or kV according to the patient's size were employed. CLINICAL HISTORY: evaluate known thoracic aneurysm COMPARISON: 02/19/2023 FINDINGS: There is no aortic dissection. Heart size is borderline enlarged. The ascending aorta measures 41 mm in diameter, was previously 40 mm in 2022. There is no mediastinal, hilar, or axillary lymphadenopathy. The lungs are clear. No suspicious pulmonary nodules are noted. There is no pleural or pericardial effusion. Limited evaluation of the upper abdomen demonstrates incomplete imaging of an infrarenal abdominal aortic aneurysm, measuring 43 mm in size. IMPRESSION: No evidence of aortic dissection. The ascending aorta measures 41 mm in diameter, was previously 40 mm. There is also incomplete imaging of an infrarenal abdominal aortic aneurysm, measuring 43 mm in diameter. Reviewed, Interpreted and Dictated by Christiana Kline MD Transcribed by Maria T Willis Authenticated and [facility]
[2024-10-11] MEDS: 0.9 % SODIUM CHLORIDE 50 ML VIAL IV (10:05)
[2024-10-11] MEDS: IOPAMIDOL-370 (76%);100ML BOTTLE 100 ML IV (10:05)
[2024-10-11] MEDS: SODIUM CHLORIDE 0.9% 10ML SYR (RAD ONLY) 10 ML IV (10:05)
== END 2024-10-11 23:59 | disposition home or self-care (01) ==
LOC: RAD 09:14
PROVIDERS: PCP Nurse Practitioner; Visit Provider Nurse Practitioner Family
DX: I71.43 Infrarenal abdominal aortic aneurysm, without rupture (principal); I71.21 Aneurysm of the ascending aorta, without rupture; I35.1 Nonrheumatic aortic (valve) insufficiency
CPT/HCPCS: 36415; 71275; 76706; 82565; 84520; Q9967